=== PATIENT | female | born 1930 | race Caucasian/White ===

== ENCOUNTER 2018-05-07 15:06 | Inpatient (IN) ==
--- NOTE | 2018-05-07 15:19 | Emergency Department Note ---
ED Disposition Clinical Impression: Dementia, RLL pneumonia, Aspiration pneumonia Disposition: Still a Patient Condition on Discharge: Fair Instructions: DI for Acute Abdomen Referrals: Provider,Referral, [Primary Care Provider] - - Critical Care Critical Care Time: No Attestation: On , the high probability of a clinically significant, sudden or life threatening deterioration of the following system(s) required my full and direct attention, intervention and personal management. The time I documented below is in addition to time spent performing reported procedures but includes the following listed in this critical care notation. Medical Decision Making - Arvin Inquiry Pt receiving controlled substance: No Arvin was queried for this patient: No Vital Signs: 05/07/18 15:06 Temperature 99.0 F Temperature Source Oral Pulse Rate [Left Radial] 89 Respiratory Rate 18 Blood Pressure [Right Arm] 122/62 Blood Pressure Mean [Right Arm] 82 Blood Pressure Source [Right Arm] Automatic Cuff Blood Pressure Position [Right Arm] Sitting 02 Sat by Pulse Oximetry 96 Oxygen Delivery Method Room Air - Lab Data Lab Results 05/07/18 15:07: WBC 13.6 H, RBC 3.01 L, Hgb 9.7 L, Hct 28.4 L, MCV 94.3, MCH 32.3 H, MCHC 34.2, RDW 13.5, Plt Count 365, MPV 7.6, Neut % (Auto) 81.6 H, Lymph % (Auto) 11.9, [place] % (Auto) 5.0, Eos % (Auto) 1.2, Baso % (Auto) 0.3, Neut # (Auto) 11.1 H, Lymph # (Auto) 1.6, [place] # (Auto) 0.7, Eos # (Auto) 0.2, Baso # (Auto) 0.0 05/07/18 15:07: Sodium 141, Potassium 4.4, Chloride 108 H, Carbon Dioxide 24, Anion Gap 13.4, BUN 54 H, Creatinine 1.76 H, Estimated Creat Clear 20, Estimated GFR 27 L, Est GFR ( Amer) 33 L, Glucose 113 H, Calcium 9.1, Total Bilirubin 0.4, AST 26, ALT 22, Alkaline Phosphatase 123 H, Total Protein 7.6, Albumin 2.2 L, Globulin 5.4 H, Albumin/Globulin Ratio 0.4 L 05/07/18 15:10: Stool Occult Blood Negative 05/07/18 15:37: Lactate 0.8 Result diagrams: 05/07/18 15:07 05/07/18 15:07 Orders (Tests/Meds): ED MEDICATIONS Generic Name Dose Route Start Last Admin Trade Name Freq PRN Reason Stop Dose Admin Cefepime HCl 1 gm/ Sodium 50 mls @ 100 mls/hr 05/07/18 15:15 05/07/18 16:38 Chloride IV 05/21/18 15:14 100 mls/hr Q12H CONCHITA Administration Protocol Discontinued Medications Generic Name Dose Route Start Last Admin Trade Name Freq PRN Reason Stop Dose Admin Sodium Chloride 1,000 mls @ 999 mls/hr 05/07/18 15:15 05/07/18 16:38 Sod Chlor 0.9% 1000ml Bag IV 05/07/18 16:15 999 mls/hr .Q1H1M CONCHITA Administration ORDERS Category Date Time Status XR chest 2V Stat Exams 05/07/18 15:14 Taken Occult Blood,Stool Stat Lab 05/07/18 15:10 Ordered Blood Culture Stat Micro 05/07/18 15:40 Received - Radiology Data #1 Image(s): Chest Image Reviewed: Yes I reviewed the patient's radiology image Preliminary Findings: Abnormal Right lower lobe infiltrates and questionable early right upper lobe infiltrate. Medical Decision Narrative: Intact Dr. Espinal for admission Dr. Bradley was livestock nutritionist for him. Agreed to admit for IV antibiotics duo nebs suction and pulmonary toilet. Resp/SOB HPI - General Chief Complaint: Abdominal Pain Stated Complaint: Abdomen pain Time Seen by Provider: 05/07/18 15:10 Mode of Arrival: EMS Limitations: No Limitations Description of Symptoms (Recalled from ER Triage Doc. by RN): Was brought in by EMS for lower right pain with black tarry stool and cough. At the long term pt o2 on ra was 75, on 2 l at long term she was 81 with a cough, Duoneb given in ambulance - History of Present Illness 88 years old white female with history of dementia coronary artery disease urinary tract infection COPD". He was sent from the long term due to low oxygen saturation and chest congestion. Applied oxygen with increase of her oxygen saturations [phone] EMS was contacted and patient was brought to the ED. in the ED the patient is alert she denies having chest pain or abdominal. She denies fever or chills. She is in no acute respiratory distress MD Complaint: shortness of breath Severity: mild Consistency/Duration: now resolved Relieving factors: oxygen, bronchodilators Exacerbating factors: nothing Associated symptoms: denies other symptoms Treatment prior to arrival: none - Related Data Home Medications Medication Instructions Recorded Confirmed Acetaminophen 500 mg PO Q6 PRN 10/23/17 05/07/18 Aspirin 81 mg PO DAILY 10/23/17 05/07/18 Carvedilol [Carvedilol 3.125mg Tab] 1.5625 mg PO DAILY 10/23/17 05/07/18 Cholecalciferol (Vitamin D3) 2,000 unit PO DAILY 10/23/17 05/07/18 [Vitamin D3 1,000 Unit Tab] Clopidogrel Bisulfate [Plavix 75mg 75 mg PO DAILY 10/23/17 05/07/18 Tab] Donepezil HCl [Aricept 5mg] 5 mg PO HS 10/23/17 05/07/18 Mirtazapine [Remeron 15mg tablet] 15 mg PO HS 10/23/17 05/07/18 Multivitamin with Minerals 1 each PO DAILY 10/23/17 05/07/18 [Multivitamins with Minerals] Polyethylene Glycol 3350 [Miralax 17 gm PO DAILY 10/23/17 05/07/18 17gm Packet] Simvastatin [Zocor] 10 mg PO HS 10/23/17 05/07/18 guaiFENesin [Robitussin 200mg/10mL 10 ml PO Q6 PRN 10/23/17 05/07/18 Syrup Udc] raNITIdine HCl [Ranitidine HCl] 150 mg PO BID 10/23/17 05/07/18 Sennosides [Senna Laxative] 2 tab PO BIDP PRN 10/24/17 05/07/18 Ipratropium/Albuterol Sulfate 3 ml IH TID 05/07/18 05/07/18 [Duoneb 3mL neb] Allergies Allergy/AdvReac Type Severity Reaction Status Date / Time Penicillins Allergy Unknown Verified 10/23/17 19:22 streptomycin Allergy Unknown Verified 10/23/17 19:22 [facility] History I have reviewed the patient's past medical history: Yes Medical History: Reports:: Atherosclerotic Heart Disease, Chronic Obstructive Pulmonary Disease (COPD), Urinary Tract Infection Denies:: Cancer, Diabetes Mellitus Type 1, Diabetes Mellitus Type 2, Internal Pacemaker, MRSA Other Medical History: Reports: Anemia, Cataracts, Other (pneumonia) Laterality Cases: Bilateral: Tonsillectomy Other Surgeries: Yes: Angioplasty, Cardiac Catheterization. No: Pacemaker Amputation: No Fractures: No - Social History Smoking Status: Former smoker Tobacco Type: cigarettes #Yrs smoked (if former smoker): 50 Alcohol Intake: never Occupational Status: retired Housing: long term Household Members: other Comment: Hobbies: Loves to read - Psychiatric History Expresses thoughts of harming self/others: None Suicide Plan Description: No Plan Family Hx:: Cancer, Diabetes, Hypertension ROS Obtained: Yes All systems reviewed & no additional complaints Physical Exam - General General appearance: alert, in no apparent distress - Head Head exam: atraumatic, normocephalic, normal inspection - Eye Eye exam: Present: normal appearance, PERRL, EOMI. Absent: scleral icterus - ENT ENT exam: Present: normal exam, normal oropharynx, mucous membranes moist, TM's normal bilaterally, normal external ear exam - Neck Neck exam: Present: normal inspection, full ROM, trachea midline. Absent: meningismus, lymphadenopathy - Chest Chest inspection: Present: normal inspection, symmetric chest wall rise. Absent: tenderness - Respiratory Respiratory exam: Present: normal lung sounds bilaterally, wheezes, other (Bibasilar coarse rhonchi.). Absent: respiratory distress - Cardiovascular Cardiovascular exam: Present: regular rate, normal rhythm. Absent: JVD - Abdominal Exam Abdominal exam: Present: soft, normal bowel sounds. Absent: distention, tenderness, guarding, rebound, rigidity - Rectal Exam Rectal exam: Present: normal inspection, normal rectal tone, heme (-) stool. Absent: hemorrhoids, mass, tenderness - External exam: Present: normal external exam - Extremities Exam Extremities exam: Present: normal inspection, full ROM, normal capillary refill. Absent: calf tenderness - Back Exam Back exam: Present: normal inspection. Absent: tenderness, CVA tenderness (R), CVA tenderness (L), paraspinal tenderness, vertebral tenderness - Neurological Exam Neurological exam: Present: alert, CN II-XII intact, motor sensory deficit, reflexes normal, other (She is bedridden with contractures.) - Psychiatric Psychiatric exam: Present: normal affect, normal mood - Skin Skin exam: Present: warm, dry, intact, normal color - Lymphatic Lymphatic Findings: no adenopathy
[2018-05-07 15:23] LABS: Basophils % 0.3 % (0.1-2.0); Eosinophils # 0.2 K/mm3 (0.0-0.4); Eosinophils % 1.2 % (0.1-12.0); Hematocrit 28.4 % (37.0-47.0); Hemoglobin 9.7 g/dL (12.2-16.2); Lymphocytes # 1.6 K/mm3 (0.7-4.5); Lymphocytes % 11.9 K/mm3 (10-50); Mean Corpuscular HGB Conc 34.2 g/dL (31.8-35.4); Mean Corpuscular Hemoglobin 32.3 pg (27.0-31.2); Mean Corpuscular Volume 94.3 fl (81-99); Mean Platelet Volume 7.6 fl (7.4-10.4); Monocytes # 0.7 K/mm3 (0.1-1.0); Neutrophils # 11.1 K/mm3 (1.8-7.8); Neutrophils % 81.6 % (37.0-80.0); Platelet Count 365 K/mm3 (142-424); Red Blood Count 3.01 M/mm3 (4.20-5.40); Red Cell Distribution Width 13.5 % (11.5-17.5); White Blood Count 13.6 K/mm3 (4.8-10.8)
[2018-05-07 15:30] LABS: Albumin Level 2.2 gm/dL (3.4-5.0); Albumin/Globulin Ratio 0.4 (1.1-1.8); Anion Gap 13.4 mEq/L (5-15); Bilirubin,Total 0.4 mg/dL (0.2-1.0); Calcium 9.1 mg/dL (8.5-10.1); Globulin 5.4 gm/dl (1.3-3.2); Potassium 4.4 mmoL/L (3.5-5.1); Total Protein,Serum 7.6 gm/dL (6.4-8.2)
[2018-05-08 07:10] LABS: Basophils % 0.1 % (0.1-2.0); Eosinophils # 0.1 K/mm3 (0.0-0.4); Lymphocytes # 1.3 K/mm3 (0.7-4.5); Lymphocytes % 11.2 K/mm3 (10-50); Mean Corpuscular HGB Conc 34.1 g/dL (31.8-35.4); Mean Corpuscular Hemoglobin 33.2 pg (27.0-31.2); Mean Corpuscular Volume 97.4 fl (81-99); Mean Platelet Volume 7.4 fl (7.4-10.4); Monocytes # 0.4 K/mm3 (0.1-1.0); Monocytes % 3.7 % (1.7-9.3); Neutrophils % 83.9 % (37.0-80.0); Platelet Count 324 K/mm3 (142-424); Red Blood Count 2.62 M/mm3 (4.20-5.40); Red Cell Distribution Width 13.6 % (11.5-17.5); White Blood Count 11.9 K/mm3 (4.8-10.8)
[2018-05-08 07:13] LABS: Hematocrit 25.5 % (37.0-47.0); Hemoglobin 8.7 g/dL (12.2-16.2)
[2018-05-08 07:18] LABS: Anion Gap 16.9 mEq/L (5-15); Calcium 8.3 mg/dL (8.5-10.1); Potassium 3.9 mmoL/L (3.5-5.1)
--- NOTE | 2018-05-08 08:04 | History & Physical Report ---
*Admission Date: 05/07/18 *Chief complaint: Shortness of breath and abdominal pain *History of present illness: This 88-year-old white female was [facility] the [facility]. She was complaining of some shortness of breath and some abdominal pain, this according to the pursue requested transfer for evaluation. Her oxygen saturation was reportedly low in the 7 4-81% range. In the emergency room she was indeed short of breath. She was not complaining of abdominal pain in the emergency room, however. She had a slightly elevated white blood cell count in the emergency room and the emergency room physician judged that she might have a pneumonia based on her evaluation and chest x-ray. She was admitted for antibiotic treatment and further evaluation. History is significant for previous pneumonias for ischemic cardiomyopathy with an ejection fashion of 35%. [facility] History Medical History: Reports:: Atherosclerotic Heart Disease, Chronic Obstructive Pulmonary Disease (COPD), Urinary Tract Infection Denies:: Cancer, Diabetes Mellitus Type 1, Diabetes Mellitus Type 2, Internal Pacemaker, MRSA Other Medical History: Reports: Anemia, Cataracts, Other (pneumonia) Laterality Cases: Bilateral: Tonsillectomy Other Surgeries: Yes: Angioplasty, Cardiac Catheterization (Stenting of the mid left LAD 12/20/2010.). No: Pacemaker Amputation: No Fractures: No - *Social History Educational Level: Completed Grade School (It is noted that she likes to read) Smoking Status: Former smoker Tobacco Type: cigarettes #Yrs smoked (if former smoker): 50 Smoking End Date: Quit September 2009 Alcohol Intake: never Occupational Status: retired Housing: [facility] Household Members: other - Psychiatric History Expresses thoughts of harming self/others: None Suicide Plan Description: No Plan *Family Hx:: Unable to obtain (Record obtained from office notes), Cancer, Diabetes, Hypertension Comment: Her father and mother both had hypertension. Her mother had cancer. A maternal grandmother had brain cancer. A maternal aunt had Beatties. She had a daughter that of cancer apparently breast cancer. She has siblings that have diabetes. It is recorded that she has 2 brothers and 2 sisters. Review of Systems - Review of Systems Review of systems:: other (Difficult to obtain a history. Difficult to obtain review of systems) - *Cardiovascular Denies chest pain - *Respiratory Reports chest congestion, Reports cough - *Gastrointestinal Denies abdominal pain Meds Home Medications Medication Instructions Recorded Confirmed Type Acetaminophen 500 mg PO Q6 PRN 10/23/17 05/07/18 History Aspirin 81 mg PO DAILY 10/23/17 05/07/18 History Carvedilol [Carvedilol 3.125mg Tab] 1.5625 mg PO DAILY 10/23/17 05/07/18 History Cholecalciferol (Vitamin D3) 2,000 unit PO DAILY 10/23/17 05/07/18 History [Vitamin D3 1,000 Unit Tab] Clopidogrel Bisulfate [Plavix 75mg 75 mg PO DAILY 10/23/17 05/07/18 History Tab] Donepezil HCl [Aricept 5mg] 5 mg PO HS 10/23/17 05/07/18 History Mirtazapine [Remeron 15mg tablet] 15 mg PO HS 10/23/17 05/07/18 History Multivitamin with Minerals 1 each PO DAILY 10/23/17 05/07/18 History [Multivitamins with Minerals] Polyethylene Glycol 3350 [Miralax 17 gm PO DAILY 10/23/17 05/07/18 History 17gm Packet] Simvastatin [Zocor] 10 mg PO HS 10/23/17 05/07/18 History guaiFENesin [Robitussin 200mg/10mL 10 ml PO Q6 PRN 10/23/17 05/07/18 History Syrup Udc] raNITIdine HCl [Ranitidine HCl] 150 mg PO BID 10/23/17 05/07/18 History Sennosides [Senna Laxative] 2 tab PO BIDP PRN 10/24/17 05/07/18 History Ipratropium/Albuterol Sulfate 3 ml IH TID 05/07/18 05/07/18 History [Duoneb 3mL neb] Allergies Allergy/AdvReac Type Severity Reaction Status Date / Time Penicillins Allergy Unknown Verified 10/23/17 19:22 streptomycin Allergy Unknown Verified 10/23/17 19:22 Exam Vital signs and Labs for Last 24 Hours: Temp Pulse Resp BP Pulse Ox 97.8 F 88 18 129/68 91 L 05/08/18 04:00 05/08/18 05:53 05/08/18 04:00 05/08/18 04:00 05/08/18 05:53 Laboratory Results - last 24 hr 05/07/18 15:07: WBC 13.6 H, RBC 3.01 L, Hgb 9.7 L, Hct 28.4 L, MCV 94.3, MCH 32.3 H, MCHC 34.2, RDW 13.5, Plt Count 365, MPV 7.6, Neut % (Auto) 81.6 H, Lymph % (Auto) 11.9, [place] % (Auto) 5.0, Eos % (Auto) 1.2, Baso % (Auto) 0.3, Neut # (Auto) 11.1 H, Lymph # (Auto) 1.6, [place] # (Auto) 0.7, Eos # (Auto) 0.2, Baso # (Auto) 0.0 05/07/18 15:07: Sodium 141, Potassium 4.4, Chloride 108 H, Carbon Dioxide 24, An ion Gap 13.4, BUN 54 H, Creatinine 1.76 H, Estimated Creat Clear 20, Estimated GFR 27 L, Est GFR ( Amer) 33 L, Glucose 113 H, Calcium 9.1, Total Bilirubin 0.4, AST 26, ALT 22, Alkaline Phosphatase 123 H, Total Protein 7.6, Albumin 2.2 L, Globulin 5.4 H, Albumin/Globulin Ratio 0.4 L 05/07/18 15:10: Stool Occult Blood Negative 05/07/18 15:37: Lactate 0.8 05/08/18 06:46: WBC 11.9 H, RBC 2.62 L, Hgb 8.7 L D, Hct 25.5 L, MCV 97.4, MCH 33.2 H, MCHC 34.1, RDW 13.6, Plt Count 324, MPV 7.4, Neut % (Auto) 83.9 H, Lymph % (Auto) 11.2, [place] % (Auto) 3.7, Eos % (Auto) 1.0, Baso % (Auto) 0.1, Neut # (Auto) 10.0 H, Lymph # (Auto) 1.3, [place] # (Auto) 0.4, Eos # (Auto) 0.1, Baso # (Auto) 0.0 05/08/18 06:46: Sodium 145, Potassium 3.9, Chloride 112 H, Carbon Dioxide 20 L, Anion Gap 16.9 H, BUN 50 H, Creatinine 1.61 H, Estimated Creat Clear 17, Estimated GFR 30 L, Est GFR ( Amer) 37 L, Glucose 101, Calcium 8.3 L, Magnesium 1.6 Laboratory Tests 05/07/18 05/07/18 05/08/18 15:07 15:07 06:46 WBC 13.6 H 11.9 H Hgb 9.7 L 8.7 L D Sodium 141 Potassium 4.4 BUN 54 H Creatinine 1.76 H 05/08/18 06:46 WBC Hgb Sodium 145 Potassium 3.9 BUN 50 H Creatinine 1.61 H I & O for Last 24 hours: Intake & Output 05/05/18 05/06/18 05/07/18 05/08/18 11:59 11:59 11:59 11:59 Intake Total 100 / 100 Balance 100 / 100 Weight 97 lb 9 oz - Constitutional no acute distress Comments: She is lying in bed in no acute distress but she is somewhat tachypneic. She repeatedly asks if she is going home today. - *Routine HEENT Exam Head: Present: normocephalic Eye: Present: EOMI, PERRL. Absent: scleral injection ENT: Present: mucous membranes moist - *Routine Neck Exam Present: supple. Absent: JVD - Routine Chest/Breast/Axilla Exam Chest wall: Absent: tenderness, mass Breast: Absent: tenderness - *Routine Respiratory Exam Comments: She is somewhat tachypneic and has a rattling deep cough. She is moving air very well and has a few bibasilar rales. Chest x-ray is reviewed. - *Routine Cardiovascular Exam Present: RRR Comments: Seems to be in sinus rhythm at 104. - *Routine Abdominal Exam Present: soft. Absent: tenderness, distended, rigid, organomegaly, mass - *Routine Rectal Exam Comments: Not done - *Routine Extremities Exam Absent: edema Comments: She has large pads on her feet but I checked no heel ulcers. There is an abrasion or excoriation on the right foot dorsum at the first MP joint. There is onychogryphosis - *Routine Neurological Exam Present: alert, oriented X3 She is awake but orientation is questionable. She repeatedly asks am I going home today. H&P: Result - Imaging and Cardiology Chest x-ray Status: image reviewed by me (The report does not call a pneumonia. Questions blunting at the angles. Questions effusion.) Assessment and Plan (1) Bronchitis Current visit: Yes Status: Acute Category: Medical Code(s): J40 - Bronchitis, not specified as acute or chronic (2) Ischemic cardiomyopathy Current visit: Yes Status: Acute Category: Medical Code(s): I25.5 - Ischemic cardiomyopathy (3) Elevated white blood cell count Current visit: Yes Status: Acute Category: Medical Code(s): D72.829 - Elevated white blood cell count, unspecified (4) Hx of arteriosclerotic cardiovascular disease Current visit: No Status: Acute Category: Medical Code(s): Z86.79 - Personal history of other diseases of the circulatory system (5) Hypertension Current visit: No Status: Acute Category: Medical Code(s): I10 - Essential (primary) hypertension (6) Hypoxemia Current visit: No Status: Acute Category: Medical Code(s): R09.02 - Hypoxemia (7) Debility Current visit: No Status: Chronic Category: Medical Code(s): R53.81 - Other malaise - Assessment and plan all Dx Assessment and Plan for all problems:: See orders. IV antibiotics have been initiated. She seems clinically stable.
--- NOTE | 2018-05-08 08:39 | Pharmacy Consult Notes ---
[facility] Pharmacy VTE Monitoring - Patient Demographics Admission date: 05/07/18 Report Date: 05/08/18 Time: 08:38 Allergies/Adverse Reactions: Patient Allergies Penicillins Allergy (Unknown, Verified 10/23/17 19:22) streptomycin Allergy (Unknown, Verified 10/23/17 19:22) Height: 1.65 m Weight: 44.254 kg Patient Problems: Current Active Problems Dementia (Acute) RLL pneumonia (Acute) Aspiration pneumonia (Acute) Bronchitis (Acute) Ischemic cardiomyopathy (Acute) Elevated white blood cell count (Acute) - VTE Risk Labs: VTE Related Lab Results Hgb 8.7 g/dL (12.2-16.2) L D 05/08/18 06:46 Hct 25.5 % (37.0-47.0) L 05/08/18 06:46 Plt Count 324 K/mm3 (142-424) 05/08/18 06:46 BUN 50 mg/dL (7-18) H 05/08/18 06:46 Creatinine 1.61 mg/dL (0.55-1.02) H 05/08/18 06:46 Estimated Creat Clear 17 mL/min (0-300) 05/08/18 06:46 VTE Score: 2 VTE Risk Level: Very Low Risk - Prophylaxis VTE Prophylaxis Ordered?: Yes Types of VTE Prophylaxis: TEDS Knee High Location of Applied Device: Bilateral Lower Extremeties - VTE Diagnosis Confirmed Treatment or plan recommended: Continue Current Treatment
--- NOTE | 2018-05-09 08:46 | Progress Note ---
Addendum entered and electronically signed by Winifred Mcdonnell APRN 05/09/18 08:50: Pelvis, hips, and lower back x-rays ordered. Also CBC and BMP and cath urine ordered. Comfort measures. Continue with treatment for pneumonia. Original Note: Internal Medicine - PN: Subj *Date: 05/19/18 *Time: 07:45 Interval history: Patient states her hips hurt when she coughs. She denies chest pain and shortness of breath. She continues with a congested nonproductive cough. She states she is eating and likes milk. Nursing states that she started complaining of her hips and her back hurting yesterday. Tylenol, tramadol, Lorcet did not help last night. Exam Vital signs and Labs for Last 24 Hours: Temp Pulse Resp BP Pulse Ox 99.8 F H 103 H 24 118/74 90 L 05/09/18 08:00 05/09/18 08:00 05/09/18 08:00 05/09/18 08:00 05/09/18 08:00 I & O for Last 24 hours: Intake & Output 05/06/18 05/07/18 05/08/18 05/09/18 11:59 11:59 11:59 11:59 Intake Total 260 / 260 1561 / 1561 Balance 260 / 260 1561 / 1561 Weight 97 lb 9 oz - Constitutional no acute distress Comments: Awakened for exam. Heels with movement from side to side. - *Routine Respiratory Exam Comments: Bilateral rhonchi. Congested cough. - *Routine Cardiovascular Exam Present: RRR - *Routine Abdominal Exam Present: soft, normoactive bowel sounds. Absent: tenderness - *Routine Rectal Exam Comments: No noted hemorrhoids - *Routine Extremities Exam Absent: edema Comments: Bilateral foot drop - *Routine Skin Exam Present: intact - *Routine Neurological Exam Seems alert. Answers all questions appropriately. Assessment and Plan (1) Bronchitis Current visit: Yes Status: Acute Category: Medical Code(s): J40 - Bronchitis, not specified as acute or chronic (2) Ischemic cardiomyopathy Current visit: Yes Status: Acute Category: Medical Code(s): I25.5 - Ischemic cardiomyopathy (3) Elevated white blood cell count Current visit: Yes Status: Acute Category: Medical Code(s): D72.829 - Elevated white blood cell count, unspecified (4) Hx of arteriosclerotic cardiovascular disease Current visit: No Status: Acute Category: Medical Code(s): Z86.79 - Personal history of other diseases of the circulatory system (5) Hypertension Current visit: No Status: Acute Category: Medical Code(s): I10 - Essential (primary) hypertension (6) Hypoxemia Current visit: No Status: Acute Category: Medical Code(s): R09.02 - Hypoxemia (7) Debility Current visit: No Status: Chronic Category: Medical Code(s): R53.81 - Other malaise (8) Back pain Current visit: Yes Status: Acute Category: Medical Code(s): M54.9 - Dorsalgia, unspecified (9) Pelvic pain Current visit: Yes Status: Acute Category: Medical Code(s): R10.2 - Pelvic and perineal pain
[2018-05-09 08:51] LABS: Basophils % 0.1 % (0.1-2.0); Eosinophils # 0.3 K/mm3 (0.0-0.4); Eosinophils % 2.3 % (0.1-12.0); Hematocrit 27.6 % (37.0-47.0); Hemoglobin 8.2 g/dL (12.2-16.2); Lymphocytes % 8.3 K/mm3 (10-50); Mean Corpuscular HGB Conc 29.8 g/dL (31.8-35.4); Mean Corpuscular Volume 97.3 fl (81-99); Mean Platelet Volume 8.1 fl (7.4-10.4); Monocytes # 0.3 K/mm3 (0.1-1.0); Monocytes % 2.9 % (1.7-9.3); Neutrophils # 9.9 K/mm3 (1.8-7.8); Neutrophils % 86.4 % (37.0-80.0); Platelet Count 310 K/mm3 (142-424); Red Blood Count 2.84 M/mm3 (4.20-5.40); Red Cell Distribution Width 13.7 % (11.5-17.5); White Blood Count 11.5 K/mm3 (4.8-10.8)
[2018-05-09 08:54] LABS: Anion Gap 14.9 mEq/L (5-15); Calcium 8.7 mg/dL (8.5-10.1); Potassium 3.9 mmoL/L (3.5-5.1)
[2018-05-09 09:33] LABS: Basophils % 0.2 % (0.1-2.0); Eosinophils # 0.3 K/mm3 (0.0-0.4); Eosinophils % 1.9 % (0.1-12.0); Hematocrit 28.1 % (37.0-47.0); Hemoglobin 8.7 g/dL (12.2-16.2); Lymphocytes % 6.9 K/mm3 (10-50); Mean Corpuscular HGB Conc 30.9 g/dL (31.8-35.4); Mean Corpuscular Volume 97.2 fl (81-99); Mean Platelet Volume 8.3 fl (7.4-10.4); Monocytes # 0.4 K/mm3 (0.1-1.0); Monocytes % 2.5 % (1.7-9.3); Neutrophils # 12.3 K/mm3 (1.8-7.8); Neutrophils % 88.5 % (37.0-80.0); Platelet Count 335 K/mm3 (142-424); Red Blood Count 2.89 M/mm3 (4.20-5.40); Red Cell Distribution Width 13.7 % (11.5-17.5); White Blood Count 13.9 K/mm3 (4.8-10.8)
[2018-05-09 10:44] LABS: Eosinophils % 1 % (0-3); Lymphocytes % 7 % (10-50); Monocytes % 3 % (2-9); Neutrophils % 89 % (42-76); Total Cells Counted 100
--- NOTE | 2018-05-09 14:37 | Pharmacy Consult Notes ---
- Pharmacy Consult Date: 05/09/18 Time: 14:35 Referring provider: DR. PAUL Reason for Consult:: VANCOMYCIN DOSING Allergies and ADEs:: Allergies Allergy/AdvReac Type Severity Reaction Status Date / Time Penicillins Allergy Unknown Verified 10/23/17 19:22 streptomycin Allergy Unknown Verified 10/23/17 19:22 Home Medications:: Home Medications Medication Instructions Recorded Confirmed Type Acetaminophen 500 mg PO Q6HP PRN 10/23/17 05/08/18 History Aspirin 81 mg PO DAILY 10/23/17 05/07/18 History Carvedilol [Carvedilol 3.125mg Tab] 1.5625 mg PO DAILY 10/23/17 05/07/18 History Cholecalciferol (Vitamin D3) 2,000 unit PO DAILY 10/23/17 05/07/18 History [Vitamin D3 1,000 Unit Tab] Clopidogrel Bisulfate [Plavix 75mg 75 mg PO DAILY 10/23/17 05/07/18 History Tab] Donepezil HCl [Aricept 5mg] 5 mg PO HS 10/23/17 05/07/18 History Mirtazapine [Remeron 15mg tablet] 15 mg PO HS 10/23/17 05/07/18 History Multivitamin with Minerals 1 each PO DAILY 10/23/17 05/07/18 History [Multivitamins with Minerals] Polyethylene Glycol 3350 [Miralax 17 gm PO DAILY 10/23/17 05/07/18 History 17gm Packet] Simvastatin [Zocor] 10 mg PO HS 10/23/17 05/07/18 History guaiFENesin [Robitussin 200mg/10mL 10 ml PO Q6HP PRN 10/23/17 05/08/18 History Syrup Udc] raNITIdine HCl [Ranitidine HCl] 150 mg PO BID 10/23/17 05/07/18 History Sennosides [Senna Laxative] 17.2 mg PO BIDP PRN 10/24/17 05/08/18 History Ipratropium/Albuterol Sulfate 3 ml IH TID 05/07/18 05/07/18 History [Duoneb 3mL neb] Height: 1.65 m Weight: 44.254 kg Laboratory Results:: Laboratory Results - last 24 hr 05/09/18 08:22: WBC 11.5 H, RBC 2.84 L, Hgb 8.2 L, Hct 27.6 L, MCV 97.3, MCH 29.0, MCHC 29.8 L, RDW 13.7, Plt Count 310, MPV 8.1, Neut % (Auto) 86.4 H, Lymph % (Auto) 8.3 L, [place] % (Auto) 2.9, Eos % (Auto) 2.3, Baso % (Auto) 0.1, Neut # (Auto) 9.9 H, Lymph # (Auto) 1.0, [place] # (Auto) 0.3, Eos # (Auto) 0.3, Baso # (Auto) 0.0, Total Counted 100, Neutrophils % (Manual) 89 H, Lymphocytes % (Manual) 7 L, Monocytes % (Manual) 3, Eosinophils % (Manual) 1, Platelet E stimate Normal 05/09/18 08:22: Sodium 145, Potassium 3.9, Chloride 112 H, Carbon Dioxide 22, Anion Gap 14.9, BUN 49 H, Creatinine 1.63 H, Estimated Creat Clear 17, Estimated GFR 30 L, Est GFR ( Amer) 36 L, Glucose 108 H, Calcium 8.7 05/09/18 08:55: Urine Color Yellow, Urine Appearance Turbid, Urine pH 6.5, Ur Specific [place] 1.020, Urine Protein 2+, Urine Glucose (UA) Negative, Urine Ketones Negative, Urine Blood 2+, Urine Nitrate Negative, Urine Bilirubin Negative, Urine Urobilinogen 0.2, Ur Leukocyte Esterase 3+ A, Urine RBC 5-10, Urine WBC Tntc A, Urine Bacteria 4+ A 05/09/18 09:15: WBC 13.9 H, RBC 2.89 L, Hgb 8.7 L, Hct 28.1 L, MCV 97.2, MCH 30.0, MCHC 30.9 L, RDW 13.7, Plt Count 335, MPV 8.3, Neut % (Auto) 88.5 H, Lymph % (Auto) 6.9 L, [place] % (Auto) 2.5, Eos % (Auto) 1.9, Baso % (Auto) 0.2, Neut # (Auto) 12.3 H, Lymph # (Auto) 1.0, [place] # (Auto) 0.4, Eos # (Auto) 0.3, Baso # (Auto) 0.0 Medical History: Reports:: Atherosclerotic Heart Disease, Chronic Obstructive Pulmonary Disease (COPD), Urinary Tract Infection Denies:: Cancer, Diabetes Mellitus Type 1, Diabetes Mellitus Type 2, Internal Pacemaker, MRSA Assessment and Plan (1) Bronchitis Current visit: Yes Status: Acute Category: Medical Code(s): J40 - Bronchitis, not specified as acute or chronic (2) Ischemic cardiomyopathy Current visit: Yes Status: Acute Category: Medical Code(s): I25.5 - Ischemic cardiomyopathy (3) Elevated white blood cell count Current visit: Yes Status: Acute Category: Medical Code(s): D72.829 - Elevated white blood cell count, unspecified (4) Hx of arteriosclerotic cardiovascular disease Current visit: No Status: Acute Category: Medical Code(s): Z86.79 - Personal history of other diseases of the circulatory system (5) Hypertension Current visit: No Status: Acute Category: Medical Code(s): I10 - Essential (primary) hypertension (6) Hypoxemia Current visit: No Status: Acute Category: Medical Code(s): R09.02 - Hypoxemia (7) Debility Current visit: No Status: Chronic Category: Medical Code(s): R53.81 - Other malaise (8) Back pain Current visit: Yes Status: Acute Category: Medical Code(s): M54.9 - Dorsalgia, unspecified (9) Pelvic pain Current visit: Yes Status: Acute Category: Medical Code(s): R10.2 - Pelvic and perineal pain - Assessment and plan all Dx Assessment and Plan for all problems:: BASED ON PATIENT FACTORS, RECOMMEND VANCOMYCIN 500MG IV Q48H. PHARMACY WILL OBTAIN TROUGH LEVEL PRIOR TO SECOND DOSE AND WILL ADJUST DOSE APPROPRIATE AT THAT POINT. -KATHE HIDALGO, ALDOD
[2018-05-10 07:11] LABS: Basophils % 0.2 % (0.1-2.0); Hematocrit 27.5 % (37.0-47.0); Hemoglobin 8.1 g/dL (12.2-16.2); Lymphocytes # 0.6 K/mm3 (0.7-4.5); Lymphocytes % 7.9 K/mm3 (10-50); Mean Corpuscular HGB Conc 29.6 g/dL (31.8-35.4); Mean Corpuscular Hemoglobin 29.9 pg (27.0-31.2); Mean Corpuscular Volume 101.1 fl (81-99); Mean Platelet Volume 7.8 fl (7.4-10.4); Monocytes # 0.1 K/mm3 (0.1-1.0); Monocytes % 1.4 % (1.7-9.3); Neutrophils # 6.6 K/mm3 (1.8-7.8); Neutrophils % 90.4 % (37.0-80.0); Platelet Count 299 K/mm3 (142-424); Red Blood Count 2.72 M/mm3 (4.20-5.40); Red Cell Distribution Width 13.9 % (11.5-17.5); White Blood Count 7.3 K/mm3 (4.8-10.8)
[2018-05-10 08:05] LABS: Anion Gap 18.4 mEq/L (5-15); Calcium 7.9 mg/dL (8.5-10.1); Potassium 4.4 mmoL/L (3.5-5.1)
--- NOTE | 2018-05-10 08:26 | Progress Note ---
Internal Medicine - PN: Subj *Date: 05/10/18 *Time: 07:40 Interval history: Patient comments that she would like her Nevarez catheter removed. She states it hurts. She denies back pain but states her hips hurt. Creatinine has improved. White blood cell count is normal today. Urine and sputum cultures are pending Nurse reports that she eats very little. Exam Vital signs and Labs for Last 24 Hours: Temp Pulse Resp BP Pulse Ox 98.3 F 107 H 20 127/57 L 94 L 05/10/18 07:43 05/10/18 07:43 05/10/18 04:00 05/10/18 07:43 05/10/18 07:43 Laboratory Results - last 24 hr 05/09/18 08:22: WBC 11.5 H, RBC 2.84 L, Hgb 8.2 L, Hct 27.6 L, MCV 97.3, MCH 29.0, MCHC 29.8 L, RDW 13.7, Plt Count 310, MPV 8.1, Neut % (Auto) 86.4 H, Lymph % (Auto) 8.3 L, [place] % (Auto) 2.9, Eos % (Auto) 2.3, Baso % (Auto) 0.1, Neut # (Auto) 9.9 H, Lymph # (Auto) 1.0, [place] # (Auto) 0.3, Eos # (Auto) 0.3, Baso # (Auto) 0.0, Total Counted 100, Neutrophils % (Manual) 89 H, Lymphocytes % (Manual) 7 L, Monocytes % (Manual) 3, Eosinophils % (Manual) 1, Platelet Estimate Normal 05/09/18 08:22: Sodium 145, Potassium 3.9, Chloride 112 H, Carbon Dioxide 22, Anion Gap 14.9, BUN 49 H, Creatinine 1.63 H, Estimated Creat Clear 17, Estimated GFR 30 L, Est GFR ( Amer) 36 L, Glucose 108 H, Calcium 8.7 05/09/18 08:55: Urine Color Yellow, Urine Appearance Turbid, Urine pH 6.5, Ur Specific [place] 1.020, Urine Protein 2+, Urine Glucose (UA) Negative, Urine Ketones Negative, Urine Blood 2+, Urine Nitrate Negative, Urine Bilirubin Negative, Urine Urobilinogen 0.2, Ur Leukocyte Esterase 3+ A, Urine RBC 5-10, Urine WBC Tntc A, Urine Bacteria 4+ A 05/09/18 09:15: WBC 13.9 H, RBC 2.89 L, Hgb 8.7 L, Hct 28.1 L, MCV 97.2, MCH 30.0, MCHC 30.9 L, RDW 13.7, Plt Count 335, MPV 8.3, Neut % (Auto) 88.5 H, Lymph % (Auto) 6.9 L, [place] % (Auto) 2.5, Eos % (Auto) 1.9, Baso % (Auto) 0.2, Neut # (Auto) 12.3 H, Lymph # (Auto) 1.0, [place] # (Auto) 0.4, Eos # (Auto) 0.3, Baso # (Auto) 0.0 05/10/18 06:35: WBC 7.3 D, RBC 2.72 L, Hgb 8.1 L, Hct 27.5 L, MCV 101.1 H, MCH 29.9, MCHC 29.6 L, RDW 13.9, Plt Count 299, MPV 7.8, Neut % (Auto) 90.4 H, Lymph % (Auto) 7.9 L, [place] % (Auto) 1.4 L, Eos % (Auto) 0.0 L, Baso % (Auto) 0.2, Neut # (Auto) 6.6, Lymph # (Auto) 0.6 L, [place] # (Auto) 0.1, Eos # (Auto) 0.0, Baso # (Auto) 0.0 05/10/18 06:35: Sodium 140, Potassium 4.4, Chloride 108 H, Carbon Dioxide 18 L, Anion Gap 18.4 H, BUN 44 H, Creatinine 1.34 H, Estimated Creat Clear 21, Estimated GFR 37 L, Est GFR ( Amer) 45 L D, Glucose 137 H D, Calcium 7.9 L I & O for Last 24 hours: Intake & Output 05/07/18 05/08/18 05/09/18 05/10/18 11:59 11:59 11:59 11:59 Intake Total 260 / 260 1661 / 1661 3334 / 3334 Output Total 825 / 825 Balance 260 / 260 1661 / 1661 2509 / 2509 Weight 97 lb 9 oz 101 lb 6 oz Microbiology Reports for the Last 24 Hours: Microbiology 05/09/18 12:42 Sputum - Expectorated Sputum Gram Stain - Final 05/09/18 12:42 Sputum - Expectorated Sputum Sputum Culture - Final 05/07/18 15:40 Blood Blood Culture - Preliminary NO GROWTH AFTER 48 HOURS 05/07/18 15:37 Blood Blood Culture - Preliminary NO GROWTH AFTER 48 HOURS Radiology Reports for the Last 24 Hours: X-ray of left hip 05/09/2018 IMPRESSION: Mild osteoarthritis of the left hip X-ray of right hip 05/09/2018 IMPRESSION: Mild osteoarthritis of the right X-ray of lumbar sacral spine 05/09/2018 IMPRESSION: 1. No acute finding lumbar spine. 2. Bilateral renal calculi with staghorn calculus on the right Chest x-ray 05/09/2018 IMPRESSION: Chronic changes with right lower lobe pneumonia - Constitutional no acute distress, thin Comments: Lying in bed with head of bed elevated. Appears more alert. Verbalizes clearly that she would like her Nevarez catheter removed - *Routine Respiratory Exam Comments: Bilateral coarse rhonchi with expiratory wheezing basis. Very congested loose cough - *Routine Cardiovascular Exam Present: RRR - *Routine Abdominal Exam Present: soft, normoactive bowel sounds. Absent: tenderness - *Routine Extremities Exam Absent: edema - *Routine Skin Exam Present: pallor - *Routine Neurological Exam Present: alert (More alert today) Assessment and Plan (1) Bronchitis Current visit: Yes Status: Acute Category: Medical Code(s): J40 - Bronchitis, not specified as acute or chronic (2) Ischemic cardiomyopathy Current visit: Yes Status: Acute Category: Medical Code(s): I25.5 - Ischemic cardiomyopathy (3) Elevated white blood cell count Current visit: Yes Status: Acute Category: Medical Code(s): D72.829 - Elevated white blood cell count, unspecified (4) Hx of arteriosclerotic cardiovascular disease Current visit: No Status: Acute Category: Medical Code(s): Z86.79 - Personal history of other diseases of the circulatory system (5) Hypertension Current visit: No Status: Acute Category: Medical Code(s): I10 - Essential (primary) hypertension (6) Hypoxemia Current visit: No Status: Acute Category: Medical Code(s): R09.02 - Hypoxemia (7) Debility Current visit: No Status: Chronic Category: Medical Code(s): R53.81 - Other malaise (8) Back pain Current visit: Yes Status: Acute Category: Medical Code(s): M54.9 - Dorsalgia, unspecified (9) Pelvic pain Current visit: Yes Status: Acute Category: Medical Code(s): R10.2 - Pelvic and perineal pain (10) Right lower lobe pneumonia Current visit: Yes Status: Acute Category: Medical Code(s): J18.1 - Lobar pneumonia, unspecified organism (11) Anemia Current visit: Yes Status: Acute Category: Medical Code(s): D64.9 - Anemia, unspecified - Assessment and plan all Dx Assessment and Plan for all problems:: Patient is on vancomycin, cefepime, and Levaquin. She continues with duo nebs and has been started on steroids. Will decrease dosage of steroids today. Urine appears clear today. Will discontinue Nevarez catheter. She is on scheduled pain medication.
[2018-05-10 11:03] LABS: Lymphocytes % 7 % (10-50); Neutrophils % 92 % (42-76); Total Cells Counted 100
[2018-05-10 11:06] LABS: Macrocytosis 1+
[2018-05-10 11:07] LABS: Hypochromasia 1+
--- NOTE | 2018-05-11 08:34 | Progress Note ---
Internal Medicine - PN: Subj *Date: 05/11/18 *Time: 08:00 Interval history: Patient is wondering when she will be going back to [facility]. She states her left knee and leg hurt with movement or when she sits up in the bed. She is eating as usual which is very little. Her bowels have not moved. She is voiding and is incontinent of urine. Continues to cough. Denies shortness of breath and chest pain. She just does not want to be moved because she is afraid her left leg will start to hurt again. She did sleep some. He request that she continue with the pain medicine which she has now for the pain in her leg and her back and hips Exam Vital signs and Labs for Last 24 Hours: Temp Pulse Resp BP Pulse Ox 97.7 F 111 H 20 115/66 93 L 05/11/18 07:31 05/11/18 07:31 05/11/18 07:31 05/11/18 07:31 05/11/18 07:31 Laboratory Results - last 24 hr 05/10/18 06:35: Total Counted 100, Neutrophils % (Manual) 92 H, Band Neutrophils % 1.0, Lymphocytes % (Manual) 7 L, Platelet Estimate Normal, Hypochromasia 1+, Macrocytosis 1+ I & O for Last 24 hours: Intake & Output 05/08/18 05/09/18 05/10/18 05/11/18 11:59 11:59 11:59 11:59 Intake Total 260 / 260 1661 / 1661 3334 / 3334 1949 Output Total 825 / 825 Balance 260 / 260 1661 / 1661 2509 / 2509 1949 Weight 97 lb 9 oz 101 lb 6 oz Microbiology Reports for the Last 24 Hours: Microbiology 05/09/18 12:42 Sputum - Expectorated Sputum Gram Stain - Final 05/09/18 12:42 Sputum - Expectorated Sputum Sputum Culture - Preliminary 05/09/18 08:55 Urine,Catheterized Urine Culture - Preliminary - Constitutional no acute distress Comments: She is much more alert today. She is talkative. Speech is clear. - *Routine Respiratory Exam Comments: Bilateral rhonchi. Congested cough - *Routine Cardiovascular Exam Present: RRR - *Routine Abdominal Exam Present: soft, normoactive bowel sounds. Absent: tenderness - *Routine Extremities Exam Absent: edema Comments: Right great toe with bruising. Skin is intact. Heel protectors and bilateral teds on - *Routine Neurological Exam Present: alert, oriented X3 Ask about where Dr. Espinal is. Assessment and Plan (1) Bronchitis Current visit: Yes Status: Acute Category: Medical Code(s): J40 - Bronchitis, not specified as acute or chronic (2) Ischemic cardiomyopathy Current visit: Yes Status: Acute Category: Medical Code(s): I25.5 - Ischemic cardiomyopathy (3) Elevated white blood cell count Current visit: Yes Status: Acute Category: Medical Code(s): D72.829 - Elevated white blood cell count, unspecified (4) Hx of arteriosclerotic cardiovascular disease Current visit: No Status: Acute Category: Medical Code(s): Z86.79 - Personal history of other diseases of the circulatory system (5) Hypertension Current visit: No Status: Acute Category: Medical Code(s): I10 - Essential (primary) hypertension (6) Hypoxemia Current visit: No Status: Acute Category: Medical Code(s): R09.02 - Hypoxemia (7) Debility Current visit: No Status: Chronic Category: Medical Code(s): R53.81 - Other malaise (8) Back pain Current visit: Yes Status: Acute Category: Medical Code(s): M54.9 - Dorsalgia, unspecified (9) Pelvic pain Current visit: Yes Status: Acute Category: Medical Code(s): R10.2 - Pelvic and perineal pain (10) Right lower lobe pneumonia Current visit: Yes Status: Acute Category: Medical Code(s): J18.1 - Lobar pneumonia, unspecified organism (11) Anemia Current visit: Yes Status: Acute Category: Medical Code(s): D64.9 - Anemia, unspecified - Assessment and plan all Dx Assessment and Plan for all problems:: Cultures are still pending. Possibly back to [facility] today with antibiotics and duo nebs. Will discontinue steroids.
--- NOTE | 2018-05-11 09:20 | Discharge Summary ---
General - General Admission date:: 05/07/18 Discharge date: 05/10/18 HPI HPI: This 88-year-old white female [facility] She was complaining of some shortness of breath and abdominal pain and the nurse requested transfer for evaluation. Her oxygen saturation was reportedly low at 74-81% range. In the emergency room she was noted to be short of breath. She was not complaining of abdominal pain in the emergency room. However she had a slightly elevated white blood cell count and the emergency room physician judged that she might have a pneumonia based on her evaluation and chest x-ray. She was admitted for antibiotic treatment and further evaluation. History was significant for previous pneumonias and for ischemic cardiomyopathy with an ejection fashion of 35%. Hospital Course Hospital Course: On admission the patient was placed on triple antibiotic therapy and duo nebs. Initially she was felt to be doing well but then on 05/09/2018 she was noted to have a low-grade fever and an increase in her white blood cells. Her mental status had improved. She was complaining of leg hip and back pain and yelled continuously. At this time urinalysis was obtained and Nevarez catheter was anchored. She had x-rays of her lumbar sacral area, hips, and pelvis. These were all negative for fractures and acute process. She was noted to have arthritic changes. Repeat chest x-ray did show a right lower lobe pneumonia. At this time she was started on scheduled pain medication, steroids, and IV vancomycin was added with discontinuation of the Flagyl. IV fluids were in creased to 100 mL/h. She remained on the cefepime and Levaquin. Urinalysis did show a urinary tract infection. Nevarez catheter was removed the following day at the patient's request. She became much more alert and did appear to be more comfortable. O2 sats remained stable on oxygen Patient was noted to be bedfast in the [facility]. Her time was spent reading in the bed. She had a poor appetite and was a very picky eater. She ate as usual after admission to [facility]. She was incontinent of urine and stool. She had a closed wound on her right great toe which seemed to be improved. On 05/11/2018 patient had definitely improved. She was more alert and talkative. She was anxious to return back to [facility]. At this time urine, sputum and blood cultures were all pending final results. She was felt stable to be transferred back to [facility] with duo nebs and antibiotics. Follow-up would be at [facility]. Objective Vital signs: Temp Pulse Resp BP Pulse Ox 97.7 F 111 H 20 115/66 93 L 05/11/18 07:31 18 07:31 10 07:31 05/11/18 07:31 05/11/18 07:31 Narrative: - Constitutional no acute distress Comments: She is much more alert today. She is talkative. Speech is clear. - *Routine Respiratory Exam Comments: Bilateral rhonchi. Congested cough - *Routine Cardiovascular Exam Present: RRR - *Routine Abdominal Exam Present: soft, normoactive bowel sounds. Absent: tenderness - *Routine Extremities Exam Absent: edema Comments: Right great toe with bruising. Skin is intact. Heel protectors and bilateral teds on - *Routine Neurological Exam Present: alert, oriented X3 Ask about where Dr. Espinal is. Results Completed studies during hospitalization [Text1]: Laboratory Tests 05/07/18 05/07/18 05/07/18 15:07 15:07 15:10 WBC 13.6 H RBC 3.01 L Hgb 9.7 L Hct 28.4 L MCV 94.3 MCH 32.3 H MCHC 34.2 RDW 13.5 Plt Count 365 MPV 7.6 Neut % (Auto) 81.6 H Lymph % (Auto) 11.9 [place] % (Auto) 5.0 Eos % (Auto) 1.2 Baso % (Auto) 0.3 Neut # (Auto) 11.1 H Lymph # (Auto) 1.6 [place] # (Auto) 0.7 Eos # (Auto) 0.2 Baso # (Auto) 0.0 Sodium 141 Potassium 4.4 Chloride 108 H Carbon Dioxide 24 Anion Gap 13.4 BUN 54 H Creatinine 1.76 H Estimated Creat Clear 20 Estimated GFR 27 L Est GFR ( Amer) 33 L Glucose 113 H Lactate Calcium 9.1 Magnesium Total Bilirubin 0.4 AST 26 ALT 22 Alkaline Phosphatase 123 H Total Protein 7.6 Albumin 2.2 L Globulin 5.4 H Albumin/Globulin Ratio 0.4 L Urine Color Urine Appearance Urine pH Ur Specific [place] Urine Protein Urine Glucose (UA) Urine Ketones Urine Blood Urine Nitrate Urine Bilirubin Urine Urobilinogen Ur Leukocyte Esterase Urine RBC Urine WBC Urine Bacteria Stool Occult Blood Negative 05/07/18 05/08/18 05/09/18 15:37 06:46 08:55 WBC RBC Hgb Hct MCV MCH MCHC RDW Plt Count MPV Neut % (Auto) Lymph % (Auto) [place] % (Auto) Eos % (Auto) Baso % (Auto) Neut # (Auto) Lymph # (Auto) [place] # (Auto) Eos # (Auto) Baso # (Auto) Sodium Potassium Chloride Carbon Dioxide Anion Gap BUN Creatinine Estimated Creat Clear Estimated GFR Est GFR ( Amer) Glucose Lactate 0.8 Calcium Magnesium 1.6 Total Bilirubin AST ALT Alkaline Phosphatase Total Protein Albumin Globulin Albumin/Globulin Ratio Urine Color Yellow Urine Appearance Turbid Urine pH 6.5 Ur Specific [place] 1.020 Urine Protein 2+ Urine Glucose (UA) Negative Urine Ketones Negative Urine Blood 2+ Urine Nitrate Negative Urine Bilirubin Negative Urine Urobilinogen 0.2 Ur Leukocyte Esterase 3+ A Urine RBC 5-10 Urine WBC Tntc A Urine Bacteria 4+ A Stool Occult Blood 05/10/18 05/10/18 06:35 06:35 WBC 7.3 D RBC 2.72 L Hgb 8.1 L Hct 27.5 L MCV 101.1 H MCH 29.9 MCHC 29.6 L RDW 13.9 Plt Count 299 MPV Neut % (Auto) 90.4 H Lymph % (Auto) 7.9 L [place] % (Auto) 1.4 L Eos % (Auto) 0.0 L Baso % (Auto) Neut # (Auto) Lymph # (Auto) [place] # (Auto) Eos # (Auto) Baso # (Auto) Sodium 140 Potassium 4.4 Chloride 108 H Carbon Dioxide 18 L Anion Gap 18.4 H BUN 44 H Creatinine 1.34 H Estimated Creat Clear 21 Estimated GFR 37 L Est GFR ( Amer) 45 L D Glucose 137 H D Lactate Calcium Magnesium Total Bilirubin AST ALT Alkaline Phosphatase Total Protein Albumin Globulin Albumin/Globulin Ratio Urine Color Urine Appearance Urine pH Ur Specific [place] Urine Protein Urine Glucose (UA) Urine Ketones Urine Blood Urine Nitrate Urine Bilirubin Urine Urobilinogen Ur Leukocyte Esterase Urine RBC Urine WBC Urine Bacteria Stool Occult Blood Labs on day of discharge: Labs from last 24 hours 05/10/18 06:35 Total Counted 100 Neutrophils % (Manual) 92 H Band Neutrophils % 1.0 Lymphocytes % (Manual) 7 L Platelet Estimate Normal Hypochromasia 1+ Macrocytosis 1+ Preliminary micro results at discharge 05/09/18 12:42 Sputum Culture - Preliminary Sputum - Expectorated Sputum 05/09/18 08:55 Urine Culture - Preliminary Urine,Catheterized 05/07/18 15:40 Blood Culture - Preliminary Blood NO GROWTH AFTER 48 HOURS 05/07/18 15:37 Blood Culture - Preliminary Blood NO GROWTH AFTER 48 HOURS - Additional Comments Chest x-ray 05/09/2018 IMPRESSION: Chronic changes with right lower lobe pneumonia X-ray of left hip 05/09/2018 IMPRESSION: Mild osteoarthritis of the left hip X-ray of right hip 05/09/2018 IMPRESSION: Mild osteoarthritis of the right X-ray of lumbar sacral spine 05/09/2018 IMPRESSION: 1. No acute finding lumbar spine. 2. Bilateral renal calculi with staghorn calculus on the right DS: Diagnosis - Discharge Diagnosis (1) Bronchitis Status: Acute (2) Ischemic cardiomyopathy Status: Chronic (3) Elevated white blood cell count Status: Acute (4) Hx of arteriosclerotic cardiovascular disease Status: Chronic (5) Hypoxemia Status: Acute (6) Debility Status: Chronic (7) Back pain Status: Acute (8) Pelvic pain Status: Acute (9) Right lower lobe pneumonia Status: Acute (10) Anemia Status: Chronic Discharge Plan - Patient Discharge Instructions Additional Instructions: thickened liquids recommended Patient Instructions: Pneumonia-Adult - Follow up Plan Follow up with: Ben Espinal MD [Family Provider] - 1 week (will be seen in [place]) Home Medications: Home Medications Medication Instructions Recorded Confirmed Type Acetaminophen 500 mg PO Q6HP PRN 10/23/17 05/08/18 History Aspirin 81 mg PO DAILY 10/23/17 05/07/18 History Carvedilol [Carvedilol 3.125mg Tab] 1.5625 mg PO DAILY 10/23/17 05/07/18 History Cholecalciferol (Vitamin D3) 2,000 unit PO DAILY 10/23/17 05/07/18 History [Vitamin D3 1,000 Unit Tab] Clopidogrel Bisulfate [Plavix 75mg 75 mg PO DAILY 10/23/17 05/07/18 History Tab] Donepezil HCl [Aricept 5mg] 5 mg PO HS 10/23/17 05/07/18 History Mirtazapine [Remeron 15mg tablet] 15 mg PO HS 10/23/17 05/07/18 History Multivitamin with Minerals 1 each PO DAILY 10/23/17 05/07/18 History [Multivitamins with Minerals] Polyethylene Glycol 3350 [Miralax 17 gm PO DAILY 10/23/17 05/07/18 History 17gm Packet] Simvastatin [Zocor] 10 mg PO HS 10/23/17 05/07/18 History guaiFENesin [Robitussin 200mg/10mL 10 ml PO Q6HP PRN 10/23/17 05/08/18 History Syrup Udc] raNITIdine HCl [Ranitidine HCl] 150 mg PO BID 10/23/17 05/07/18 History Sennosides [Senna Laxative] 17.2 mg PO BIDP PRN 10/24/17 05/08/18 History Ipratropium/Albuterol Sulfate 3 ml IH TID 05/07/18 05/07/18 History [Duoneb 3mL neb] Prescriptions/Medication Reconciliation: New predniSONE [Prednisone 5mg Tab] 5 mg PO DAILY #30 tab Hydrocod/Acet 5/325 mg [[place] 5/325mg tablet] 1 tab PO TID PRN #90 tab PRN Reason: pain Sulfamethoxazole/Trimethoprim [Bactrim DS tablet] 1 each PO BID #14 tablet Continue Carvedilol [Carvedilol 3.125mg Tab] 1.5625 mg PO DAILY Clopidogrel Bisulfate [Plavix 75mg Tab] 75 mg PO DAILY Multivitamin with Minerals [Multivitamins with Minerals] 1 each PO DAILY Polyethylene Glycol 3350 [Miralax 17gm Packet] 17 gm PO DAILY Simvastatin [Zocor] 10 mg PO HS Cholecalciferol (Vitamin D3) [Vitamin D3 1,000 Unit Tab] 2,000 unit PO DAILY guaiFENesin [Robitussin 200mg/10mL Syrup Udc] 10 ml PO Q6HP PRN PRN Reason: Cough Ipratropium/Albuterol Sulfate [Duoneb 3mL neb] 3 ml IH TID Aspirin 81 mg PO DAILY Mirtazapine [Remeron 15mg tablet] 15 mg PO HS raNITIdine HCl [Ranitidine HCl] 150 mg PO BID Sennosides [Senna Laxative] 17.2 mg PO BIDP PRN PRN Reason: Constipation Discontinued Acetaminophen 500 mg PO Q6HP PRN PRN Reason: PAIN Donepezil HCl [Aricept 5mg] 5 mg PO HS
== END 2018-05-11 12:26 ==
LOC: ER 15:06 → 2ND 15:06 → OBSVTOIN 18:00 → 2ND 18:01
PROVIDERS: ADMIT Family Medicine; ATTEND Family Medicine

== ENCOUNTER 2018-05-13 20:28 | Inpatient (IN) ==
[2018-05-13 20:56] LABS: Microscopic, Urine URINE MICROSCOPIC (MICROSCOPIC)
[2018-05-13 20:59] LABS: Appearance,Urine TURBID (Clear); Bilirubin,Urine Negative (Negative); Blood, Urine 3+ (Negative); Color,Urine YELLOW (Yellow); Glucose,Urine (UA) Negative (Negative); Ketones,Urine Negative (Negative); Leukocyte Esterase,Urine 3+ (Negative); PH,Urine 6.5 (5.0-8.5); Protein,Urine 2+ (Negative); Specific Gravity, Urine >= 1.030 (1.005-1.030); Urobilinogen,Urine 0.2 EU/dl (0.2)
[2018-05-13 21:03] LABS: WBC,Urine TNTC #/hpf (0-3)
[2018-05-13 21:04] LABS: Basophils # 0.1 K/mm3 (0-0.2); Basophils % 0.2 % (0.1-2.0); Eosinophils # 0.2 K/mm3 (0.0-0.4); Eosinophils % 1.1 % (0.1-12.0); Lymphocytes # 3.2 K/mm3 (0.7-4.5); Lymphocytes % 14.4 K/mm3 (10-50); Mean Corpuscular HGB Conc 31.1 g/dL (31.8-35.4); Mean Corpuscular Volume 96.3 fl (81-99); Mean Platelet Volume 7.5 fl (7.4-10.4); Monocytes # 0.6 K/mm3 (0.1-1.0); Monocytes % 2.7 % (1.7-9.3); Neutrophils % 81.6 % (37.0-80.0); Platelet Count 416 K/mm3 (142-424); Red Blood Count 2.68 M/mm3 (4.20-5.40)
[2018-05-13 21:09] LABS: Hematocrit 25.8 % (37.0-47.0); White Blood Count 22.1 K/mm3 (4.8-10.8)
--- NOTE | 2018-05-13 21:12 | Emergency Department Note ---
ED Disposition Clinical Impression: Pelvic hematoma in female, Acute on chronic renal insufficiency UTI (urinary tract infection) Qualifiers: Urinary tract infection type: acute cystitis Hematuria presence: without hematuria Qualified Code(s): N30.00 - Acute cystitis without hematuria Elevated white blood cell count Qualifiers: Leukocytosis type: unspecified Qualified Code(s): D72.829 - Elevated white blood cell count, unspecified Sacral fracture, closed Qualifiers: Encounter type: initial encounter Zone of sacrum fracture: unspecified portion of sacrum Qualified Code(s): S32.10XA - Unspecified fracture of sacrum, initial encounter for closed fracture Anemia Qualifiers: Anemia type: unspecified type Qualified Code(s): D64.9 - Anemia, unspecified Sepsis Qualifiers: Sepsis type: sepsis due to unspecified organism Qualified Code(s): A41.9 - Sepsis, unspecified organism Disposition: Admitted As Inpatient Condition on Discharge: Serious - Critical Care Critical Care Time: No Attestation: On 05/13/18, the high probability of a clinically significant, sudden or life threatening deterioration of the following system(s) required my full and direct attention, intervention and personal management. The time I documented below is in addition to time spent performing reported procedures but includes the following listed in this critical care notation. Medical Decision Making - Medical Records Medical records reviewed: Yes: I reviewed the patient's medical records. - [place] Inquiry Pt receiving controlled substance: No Vital Signs: 05/13/18 20:29 05/13/18 21:27 05/13/18 21:30 Temperature 99.5 F Temperature Source Rectal Pulse Rate [Right Radial] 120 H 120 H 112 H Respiratory Rate 20 18 18 Blood Pressure [Right Arm] 95/51 L 87/57 L 90/61 L Blood Pressure Mean [Right Arm] 65 67 70 Blood Pressure Source [Right Arm] Automatic Cuff Automatic Cuff Blood Pressure Position [Right Arm] Supine Supine 02 Sat by Pulse Oximetry 91 L 90 L 93 L Oxygen Delivery Method Room Air Room Air Room Air Oxygen Flow Rate (LPM) 05/13/18 22:00 05/13/18 22:30 Temperature Temperature Source Pulse Rate [Right Radial] 121 H 115 H Respiratory Rate 20 18 Blood Pressure [Right Arm] 126/76 128/75 Blood Pressure Mean [Right Arm] 92 92 Blood Pressure Source [Right Arm] Automatic Cuff Blood Pressure Position [Right Arm] Supine 02 Sat by Pulse Oximetry 91 L 91 L Oxygen Delivery Method Nasal Cannula Room Air Oxygen Flow Rate (LPM) 2 - Lab Data Lab results reviewed: Yes: I reviewed the patient's lab results. Lab Results 05/13/18 20:44: Urine Color Yellow, Urine Appearance Turbid, Urine pH 6.5, Ur Specific [place] >= 1.030, Urine Protein 2+, Urine Glucose (UA) Negative, Urine Ketones Negative, Urine Blood 3+, Urine Nitrate Negative, Urine Bilirubin Negative, Urine Urobilinogen 0.2, Ur Leukocyte Esterase 3+ A, Urine RBC 10-20, Urine WBC Tntc 05/13/18 20:45: WBC 22.1 H*, RBC 2.68 L, Hgb 8.0 L, Hct 25.8 L, MCV 96.3, MCH 30.0, MCHC 31.1 L, RDW 16.0, Plt Count 416 D, MPV 7.5, Neut % (Auto) 81.6 H, Lymph % (Auto) 14.4, [place] % (Auto) 2.7, Eos % (Auto) 1.1, Baso % (Auto) 0.2, Neut # (Auto) 18.0 H, Lymph # (Auto) 3.2, [place] # (Auto) 0.6, Eos # (Auto) 0.2, Baso # (Auto) 0.1, Total Counted 100, Neutrophils % (Manual) 86 H, Band Neutrophils % 3.0, Lymphocytes % (Manual) 8 L, Monocytes % (Manual) 2, Eosinophils % (Manual) 1, Hypersegmented Neuts 1+, Platelet Estimate Normal, Polychromasia 1+, Hypochromasia 3+, Anisocytosis 1+, Macrocytosis 1+ 05/13/18 20:45: Sodium 143, Potassium 4.3, Chloride 110 H, Carbon Dioxide 20 L, Anion Gap 17.3 H, BUN 41 H, Creatinine 1.69 H, Estimated Creat Clear 17, Estimated GFR 29 L, Est GFR ( Amer) 35 L, Glucose 145 H, Calcium 8.1 L, Total Bilirubin 0.3, AST 27, ALT 25, Alkaline Phosphatase 101, Total Protein 5.9 L, Albumin 2.1 L, Globulin 3.8 H, Albumin/Globulin Ratio 0.6 L, Amylase 59, Lipase 111 05/13/18 20:45: Lactate 3.3 H 05/13/18 22:25: Stool Occult Blood Negative Result diagrams: 05/13/18 20:45 05/13/18 20:45 Orders (Tests/Meds): ED MEDICATIONS Generic Name Dose Route Start Last Admin Trade Name Freq PRN Reason Stop Dose Admin Sodium Chloride 1,440 mls @ 720 mls/hr 05/13/18 21:33 05/13/18 21:35 Sod Chlor 0.9% 1000ml Bag 30 ml/kg infuse over 2 hr (1440 ml) 05/13/18 23:32 720 mls/hr IV Administration .Q2H ONE Cefepime HCl 1 gm/ Sodium 50 mls @ 100 mls/hr 05/13/18 22:45 05/13/18 22:39 Chloride IV 05/27/18 22:44 100 mls/hr Q12H CONCHITA Administration Protocol Vancomycin HCl 1,000 mg/ 250 mls @ 125 mls/hr 05/13/18 22:45 Sodium Chloride IV 05/27/18 22:44 Q24H CONCHITA Discontinued Medications Generic Name Dose Route Start Last Admin Trade Name Freq PRN Reason Stop Dose Admin Sodium Chloride 1,000 mls @ 999 mls/hr 05/13/18 20:45 05/13/18 20:44 Sod Chlor 0.9% 1000ml Bag IV 05/13/18 21:45 999 mls/hr .Q1H1M CONCHITA Administration Morphine Sulfate 2 mg 05/13/18 22:29 05/13/18 22:39 Morphine 2mg/Ml Syringe IV 05/13/18 22:30 2 mg ONCE ONE Administration Ondansetron HCl 4 mg 05/13/18 22:29 05/13/18 22:39 Zofran 4mg/2ml Vial IV 05/13/18 22:30 4 mg ONCE ONE Administration ORDERS Category Date Time Status CT abdomen pelvis wo con Stat Cat Scan 05/13/18 20:40 Taken Chest XR AP view [XR chest AP] Stat Exams 05/13/18 20:40 Taken Occult Blood,Stool Stat Lab 05/13/18 22:25 Ordered Urinalysis and Microscopic Stat Lab 05/13/18 20:44 Ordered Blood Culture Stat Micro 05/13/18 20:44 Ordered Urine Culture Stat Micro 05/13/18 20:44 Received - Radiology Data #1 Image(s): Chest Image Reviewed: Yes I reviewed the patient's radiology image Preliminary Findings: Abnormal (similiar to prev ) - CT Data CT Scan: Abdomen, Pelvis Time Received: 22:[address] Reviewed: Yes: I have viewed the radiologist's interpretation Preliminary Findings: Abnormal (pelvic hematoma /sacral fx ) - Physician Consults Physician Consulted: sound Reason -: Admission - Tissue Perfus/Sepsis Re-Eval Reperfusion Exam Performed: Yes Date Performed: 05/13/18 Time Performed: 22:59 Sepsis Follow-Up: Yes: Respiratory exam, Capillary refill, Peripheral pulse st rength, Peripheral pulse location, Vital Signs Nausea/Vomiting/Diarrhea HPI - General Chief complaint: Abdominal Pain Stated complaint: abdominal pain Time Seen by Provider: 05/13/18 20:40 Mode of Arrival: EMS Source of Information: Patient, Relative, EMS, Medical Record Limitations: Physical Limitations Description of Symptoms (Recalled from ER Triage Doc. by RN): pt dc'd from [facility] yesterday where she was treated for pna and uti. today patient presents to ed with c/o severe abdominal pain and "rectal pain." ems reports low o2 sats upon arrival to scene at 88%. - History of Present Illness HPI Narrative: pt with recent admit for uti and pneumonia and was d/c to [facility] - pt with rectal pain tonight but no bleeding or fever and no vomiting - MD complaint: other (rectal pain ) Onset (ago): day(s) Associated Abdominal Pain: Yes Location of pain: other (rectal ) Severity: moderate Consistency: colicky Associated symptoms: denies other symptoms - Related Data Home Medications Medication Instructions Recorded Confirmed Aspirin 81 mg PO DAILY 10/23/17 05/13/18 Carvedilol [Carvedilol 3.125mg Tab] 1.5625 mg PO DAILY 10/23/17 05/13/18 Cholecalciferol (Vitamin D3) 2,000 unit PO DAILY 10/23/17 05/13/18 [Vitamin D3 1,000 Unit Tab] Clopidogrel Bisulfate [Plavix 75mg 75 mg PO DAILY 10/23/17 05/13/18 Tab] Mirtazapine [Remeron 15mg tablet] 15 mg PO HS 10/23/17 05/13/18 Multivitamin with Minerals 1 each PO DAILY 10/23/17 05/13/18 [Multivitamins with Minerals] Polyethylene Glycol 3350 [Miralax 17 gm PO DAILY 10/23/17 05/13/18 17gm Packet] Simvastatin [Zocor] 10 mg PO HS 10/23/17 05/13/18 guaiFENesin [Robitussin 200mg/10mL 10 ml PO Q6HP PRN 10/23/17 05/13/18 Syrup Udc] raNITIdine HCl [Ranitidine HCl] 150 mg PO BID 10/23/17 05/13/18 Sennosides [Senna Laxative] 17.2 mg PO BIDP PRN 10/24/17 05/13/18 Ipratropium/Albuterol Sulfate 3 ml IH TID 05/07/18 05/13/18 [Duoneb 3mL neb] Donepezil HCl [Aricept 5mg] 5 mg PO DAILY 05/13/18 05/13/18 Lutein 10 mg PO DAILY 05/13/18 05/13/18 Sulfamethoxazole/Trimethoprim 1 each PO BID 05/13/18 05/13/18 [Bactrim DS tablet] predniSONE [Prednisone 5mg 5 mg PO DAILY 05/13/18 05/13/18 Tab] Previous Rx's Medication Instructions Recorded Hydrocod/Acet 5/325 mg [[place] 1 tab PO TID PRN #90 tab 05/11/18 5/325mg tablet] Allergies Allergy/AdvReac Type Severity Reaction Status Date / Time Penicillins Allergy Unknown Verified 05/13/18 20:40 streptomycin Allergy Unknown Verified 05/13/18 20:40 [facility] History I have reviewed the patient's past medical history: Yes Medical History: Reports:: Atherosclerotic Heart Disease, Chronic Obstructive Pulmonary Disease (COPD), Urinary Tract Infection Denies:: Cancer, Diabetes Mellitus Type 1, Diabetes Mellitus Type 2, Internal Pacemaker, MRSA Other Medical History: Reports: Anemia, Cataracts, Other (pneumonia) Laterality Cases: Bilateral: Tonsillectomy Other Surgeries: Yes: Angioplasty, Cardiac Catheterization (Stenting of the mid left LAD 12/20/2010.). No: Pacemaker Amputation: No Fractures: No - Social History Smoking Status: Former smoker Tobacco Type: cigarettes #Yrs smoked (if former smoker): 50 Alcohol Intake: never Occupational Status: retired Housing: penitentiary Household Members: other Comment: Hobbies: Loves to read - Psychiatric History Expresses thoughts of harming self/others: None Suicide Plan Description: No Plan Family Hx:: Unable to obtain (Record obtained from office notes), Cancer, Diabetes, Hypertension Comment: Her father and mother both had hypertension. Her mother had cancer. A maternal grandmother had brain cancer. A maternal aunt had Beatties. She had a daughter that of cancer apparently breast cancer. She has siblings that have diabetes. It is recorded that she has 2 brothers and 2 sisters. ROS Obtained: Yes All systems reviewed & no additional complaints - Constitutional Constitutional: Denies fever(s) - Eyes Eyes: Denies change in vision - ENT Ears, Nose, Mouth, and Throat: Denies sore throat - Cardiovascular Cardiovascular: Denies chest pain - Respiratory Respiratory: No cough - Gastrointestinal Gastrointestingal: Reports: nausea. Denies: abdominal pain, diarrhea, bright red blood in stools, vomiting - Genitourinary Female Genitourinary: Denies abnormal vaginal bleeding - Musculoskeletal Musculoskeletal: Denies neck pain - Integumentary/Breasts Skin/Breast: Denies rash - Neurologic Neurologic: Denies focal weakness, Denies seizure-like activity Physical Exam - General General appearance: alert - Head Head exam: normocephalic - Eye Eye exam: Present: PERRL, EOMI - ENT ENT exam: Present: mucous membranes dry - Neck Neck exam: Present: trachea midline - Respiratory Respiratory exam: Present: other (dec bs bilat ). Absent: respiratory distress - Cardiovascular Cardiovascular exam: Present: regular rate, systolic murmur, +S4 - Abdominal Exam Abdominal exam: Present: soft. Absent: tenderness, guarding - Rectal Exam Rectal exam: Present: normal inspection, heme (-) stool, other (hard stool) - Extremities Exam Extremities exam: Absent: calf tenderness - Neurological Exam Neurological exam: Present: alert, CN II-XII intact - Psychiatric Psychiatric exam: Present: anxious - Skin Skin exam: Absent: rash
[2018-05-13 21:17] LABS: Albumin Level 2.1 gm/dL (3.4-5.0); Albumin/Globulin Ratio 0.6 (1.1-1.8); Anion Gap 17.3 mEq/L (5-15); Bilirubin,Total 0.3 mg/dL (0.2-1.0); Calcium 8.1 mg/dL (8.5-10.1); Globulin 3.8 gm/dl (1.3-3.2); Potassium 4.3 mmoL/L (3.5-5.1); Total Protein,Serum 5.9 gm/dL (6.4-8.2)
[2018-05-13 21:29] LABS: Anisocytosis 1+; Eosinophils % 1 % (0-3); Hypochromasia 3+; Lymphocytes % 8 % (10-50); Macrocytosis 1+; Monocytes % 2 % (2-9); Neutrophils % 86 % (42-76); Polychromasia 1+; Total Cells Counted 100
[2018-05-14 07:20] LABS: Anion Gap 12.7 mEq/L (5-15); Potassium 3.7 mmoL/L (3.5-5.1)
[2018-05-14 08:10] LABS: Basophils # 0.1 K/mm3 (0-0.2); Basophils % 0.3 % (0.1-2.0); Eosinophils # 0.3 K/mm3 (0.0-0.4); Eosinophils % 1.4 % (0.1-12.0); Lymphocytes # 2.8 K/mm3 (0.7-4.5); Lymphocytes % 14.3 K/mm3 (10-50); Mean Corpuscular HGB Conc 30.7 g/dL (31.8-35.4); Mean Corpuscular Volume 97.7 fl (81-99); Mean Platelet Volume 8.2 fl (7.4-10.4); Monocytes # 0.5 K/mm3 (0.1-1.0); Monocytes % 2.3 % (1.7-9.3); Neutrophils # 16.2 K/mm3 (1.8-7.8); Neutrophils % 81.8 % (37.0-80.0); Platelet Count 330 K/mm3 (142-424); Red Blood Count 2.18 M/mm3 (4.20-5.40); Red Cell Distribution Width 17.5 % (11.5-17.5); White Blood Count 19.8 K/mm3 (4.8-10.8)
[2018-05-14 08:14] LABS: Hematocrit 21.3 % (37.0-47.0); Hemoglobin 6.6 g/dL (12.2-16.2)
[2018-05-14 08:20] LABS: Calcium 6.8 mg/dL (8.5-10.1)
--- NOTE | 2018-05-14 10:17 | Pharmacy Consult Notes ---
[facility] Pharmacy VTE Monitoring - Patient Demographics Admission date: 05/13/18 Report Date: 05/14/18 Time: 10:16 Allergies/Adverse Reactions: Patient Allergies Penicillins Allergy (Unknown, Verified 05/13/18 20:40) streptomycin Allergy (Unknown, Verified 05/13/18 20:40) Height: 1.65 m Weight: 49.073 kg Patient Problems: Current Active Problems Acute on chronic renal insufficiency (Acute) Elevated white blood cell count (Acute) Anemia (Chronic) UTI (urinary tract infection) (Acute) Pelvic hematoma in female (Acute) Sacral fracture, closed (Acute) Sepsis (Acute) - VTE Risk Labs: VTE Related Lab Results Hgb 6.6 g/dL (12.2-16.2) L* 05/14/18 08:00 Hct 21.3 % (37.0-47.0) L* 05/14/18 08:00 Plt Count 330 K/mm3 (142-424) 05/14/18 08:00 BUN 37 mg/dL (7-18) H 05/14/18 06:30 Creatinine 1.30 mg/dL (0.55-1.02) H D 05/14/18 06:30 Estimated Creat Clear 23 mL/min (0-300) 05/14/18 06:30 Was VTE Risk Assessment Performed: Yes VTE Risk Level: Moderate Risk - Prophylaxis VTE Prophylaxis Ordered?: Yes Types of VTE Prophylaxis: TEDS Knee High Location of Applied Device: Bilateral Lower Extremeties
[2018-05-14 10:20] LABS: Helmet Cells 1+; Lymphocytes % 12 % (10-50); Monocytes % 2 % (2-9); Neutrophils % 86 % (42-76); Total Cells Counted 100
[2018-05-14 10:21] LABS: Hypochromasia 2+
--- NOTE | 2018-05-14 11:55 | History & Physical Report ---
*Admission Date: 05/13/18 *Chief complaint: nauea, vomiting and diarrhea *History of present illness: Patient presented to ED with some nausea, vomiting and mild diarrhea that was ongoing for few days. She was also having mild fever and chills with some abdominal pain. She was also having some altered mental status and history was limited secondary to this. [facility] History Medical History: Reports:: Atherosclerotic Heart Disease, Chronic Obstructive Pulmonary Disease (COPD), Coronary Artery Disease, Urinary Tract Infection Denies:: Cancer, Diabetes Mellitus Type 1, Diabetes Mellitus Type 2, Internal Pacemaker, MRSA Other Medical History: Reports: Anemia, Cataracts, Other (pneumonia) Laterality Cases: Bilateral: Tonsillectomy Other Surgeries: Yes: Angioplasty, Cardiac Catheterization (Stenting of the mid left LAD 12/20/2010.). No: Pacemaker Amputation: No Fractures: No - *Social History Smoking Status: Former smoker Tobacco Type: cigarettes #Yrs smoked (if former smoker): 50 Alcohol Intake: never Occupational Status: retired Housing: senior living Household Members: other - Psychiatric History Expresses thoughts of harming self/others: None Suicide Plan Description: No Plan *Family Hx:: Unable to obtain, Cancer, Diabetes, Hypertension Review of Systems - Constitutional Denies chills - Eyes Denies blind spots - *Cardiovascular Denies chest pain - *Respiratory Denies chest congestion - *Gastrointestinal Reports abdominal pain - *Neurologic Denies localized weakness, Denies seizure-like activity - Endocrine Denies cold intolerance Meds Home Medications Medication Instructions Recorded Confirmed Type Aspirin 81 mg PO DAILY 10/23/17 05/14/18 History Carvedilol [Carvedilol 3.125mg Tab] 1.5625 mg PO DAILY 10/23/17 05/14/18 History Clopidogrel Bisulfate [Plavix 75mg 75 mg PO DAILY 10/23/17 05/14/18 History Tab] Mirtazapine [Remeron 15mg tablet] 15 mg PO HS 10/23/17 05/14/18 History Multivitamin with Minerals 1 each PO DAILY 10/23/17 05/14/18 History [Multivitamins with Minerals] Polyethylene Glycol 3350 [Miralax 17 gm PO DAILY 10/23/17 05/14/18 History 17gm Packet] Simvastatin [Zocor] 10 mg PO HS 10/23/17 05/14/18 History guaiFENesin [Robitussin 200mg/10mL 10 ml PO Q6HP PRN 10/23/17 05/13/18 History Syrup Udc] raNITIdine HCl [Ranitidine HCl] 150 mg PO BID 10/23/17 05/14/18 History Sennosides [Senna Laxative] 17.2 mg PO BIDP PRN 10/24/17 05/13/18 History Ipratropium/Albuterol Sulfate 3 ml IH TID 05/07/18 05/14/18 History [Duoneb 3mL neb] Donepezil HCl [Aricept 5mg] 5 mg PO HS 05/13/18 05/14/18 History Lutein 10 mg PO DAILY 05/13/18 05/14/18 History Sulfamethoxazole/Trimethoprim 1 each PO BID 05/13/18 05/14/18 History [Bactrim DS tablet] predniSONE [Prednisone 5mg 5 mg PO DAILY 05/13/18 05/14/18 History Tab] Carboxymethylcellulose Sodium 1 drop OP BID 05/14/18 05/14/18 History [Lubricating Plus] Cholecalciferol (Vitamin D3) 2,000 unit PO DAILY 05/14/18 05/14/18 History [Vitamin D3] Guaifenesin/Dextromethorphan 1 each PO BID 05/14/18 05/14/18 History [Mucinex Dm ER 600-30 mg Tablet] Allergies Allergy/AdvReac Type Severity Reaction Status Date / Time Penicillins Allergy Unknown Verified 05/13/18 20:40 streptomycin Allergy Unknown Verified 05/13/18 20:40 Exam Vital signs and Labs for Last 24 Hours: Temp Pulse Resp BP Pulse Ox 97.4 F L 107 H 18 108/64 L 90 L 05/14/18 11:50 05/14/18 11:50 05/14/18 11:50 05/14/18 11:50 05/14/18 11:50 Laboratory Results - last 24 hr 05/13/18 20:44: Urine Color Yellow, Urine Appearance Turbid, Urine pH 6.5, Ur Specific [place] >= 1.030, Urine Protein 2+, Urine Glucose (UA) Negative, Urine Ketones Negative, Urine Blood 3+, Urine Nitrate Negative, Urine Bilirubin Negative, Urine Urobilinogen 0.2, Ur Leukocyte Esterase 3+ A, Urine RBC 10-20, Urine WBC Tntc 05/13/18 20:45: WBC 22.1 H*, RBC 2.68 L, Hgb 8.0 L, Hct 25.8 L, MCV 96.3, MCH 30.0, MCHC 31.1 L, RDW 16.0, Plt Count 416 D, MPV 7.5, Neut % (Auto) 81.6 H, Lymph % (Auto) 14.4, [place] % (Auto) 2.7, Eos % (Auto) 1.1, Baso % (Auto) 0.2, Neut # (Auto) 18.0 H, Lymph # (Auto) 3.2, [place] # (Auto) 0.6, Eos # (Auto) 0.2, Baso # (Auto) 0.1, Total Counted 100, Neutrophils % (Manual) 86 H, Band Neut rophils % 3.0, Lymphocytes % (Manual) 8 L, Monocytes % (Manual) 2, Eosinophils % (Manual) 1, Hypersegmented Neuts 1+, Platelet Estimate Normal, Polychromasia 1+, Hypochromasia 3+, Anisocytosis 1+, Macrocytosis 1+ 05/13/18 20:45: Sodium 143, Potassium 4.3, Chloride 110 H, Carbon Dioxide 20 L, Anion Gap 17.3 H, BUN 41 H, Creatinine 1.69 H, Estimated Creat Clear 17, Estimated GFR 29 L, Est GFR ( Amer) 35 L, Glucose 145 H, Calcium 8.1 L, Total Bilirubin 0.3, AST 27, ALT 25, Alkaline Phosphatase 101, Total Protein 5.9 L, Albumin 2.1 L, Globulin 3.8 H, Albumin/Globulin Ratio 0.6 L, Amylase 59, Lipase 111 05/13/18 20:45: Lactate 3.3 H 05/13/18 22:25: Stool Occult Blood Negative 05/14/18 00:35: Lactate 3.1 H 05/14/18 02:45: Lactate 1.9 05/14/18 06:30: Sodium 144, Potassium 3.7, Chloride 116 H, Carbon Dioxide 19 L, Anion Gap 12.7, BUN 37 H, Creatinine 1.30 H D, Estimated Creat Clear 23, Estimated GFR 39 L, Est GFR ( Amer) 47 L D, Glucose 95 D, Calcium 6.8 L D 05/14/18 07:55: Blood Type Confirm A Positive 05/14/18 08:00: WBC 19.8 H, RBC 2.18 L, Hgb 6.6 L*, Hct 21.3 L*, MCV 97.7, MCH 30.0, MCHC 30.7 L, RDW 17.5, Plt Count 330, MPV 8.2, Neut % (Auto) 81.8 H, Lymph % (Auto) 14.3, [place] % (Auto) 2.3, Eos % (Auto) 1.4, Baso % (Auto) 0.3, Neut # (Auto) 16.2 H, Lymph # (Auto) 2.8, [place] # (Auto) 0.5, Eos # (Auto) 0.3, Baso # (Auto) 0.1, Total Counted 100, Neutrophils % (Manual) 86 H, Lymphocytes % (Manual) 12, Monocytes % (Manual) 2, Platelet Estimate Normal, Hypochromasia 2+, Helmet Cells 1+, Acanthocytes (Spur) 1+, Schistocytes 1+ 05/14/18 08:00: Blood Type A Positive, Antibody Screen Negative, Crossmatch (AHG) See Detail I & O for Last 24 hours: Intake & Output 05/11/18 05/12/18 05/13/18 05/14/18 11:59 11:59 11:59 11:59 Intake Total 2319 / 2319 Balance 2319 / 2319 Weight 108 lb 3 oz - *Routine HEENT Exam Head: Present: normocephalic Eye: Present: EOMI ENT: Present: mucous membranes moist - *Routine Neck Exam Present: supple - *Routine Respiratory Exam Present: CTA bilaterally. Absent: accessory muscle use - *Routine Cardiovascular Exam Present: RRR - *Routine Abdominal Exam Present: soft, normoactive bowel sounds, tenderness (lower abdominal pain that is diffuse) - *Routine Extremities Exam Present: normal capillary refill Assessment and Plan (1) Sepsis Current visit: Yes Status: Acute Qualifiers: Sepsis type: sepsis due to unspecified organism Qualified Code(s): A41.9 - Sepsis, unspecified organism Category: Medical Code(s): A41.9 - Sepsis, unspecified organism (2) Acute on chronic renal insufficiency Current visit: Yes Status: Acute Category: Medical Code(s): N28.9 - Disorder of kidney and ureter, unspecified; N18.9 - Chronic kidney disease, unspecified (3) Pelvic hematoma in female Current visit: Yes Status: Acute Category: Medical Code(s): N94.89 - Other specified conditions associated with female genital organs and menstrual cycle (4) Sacral fracture, closed Current visit: Yes Status: Acute Qualifiers: Encounter type: initial encounter Zone of sacrum fracture: unspecified portion of sacrum Qualified Code(s): S32.10XA - Unspecified fracture of sacrum, initial encounter for closed fracture Category: Medical Code(s): S32.10XA - Unspecified fracture of sacrum, initial encounter for closed fracture (5) UTI (urinary tract infection) Current visit: Yes Status: Acute Qualifiers: Urinary tract infection type: acute cystitis Hematuria presence: without hematuria Qualified Code(s): N30.00 - Acute cystitis without hematuria Category: Medical Code(s): N39.0 - Urinary tract infection, site not specified (6) Bilateral pneumonia Current visit: No Status: Acute Category: Medical Code(s): J18.9 - Pneumonia, unspecified organism - Assessment and plan all Dx Assessment and Plan for all problems:: Will continue broad spectrum abx for sepsis secondary to acute complicated cystitis and bilateral pneumonia due to uncertain organism at this point. Will transfuse 2 units of pRBCs for his anemia after getting consent from the daughter, who is the POA given. Ultrasound of renal and bladder for assessing the hematoma identified on CT, will keep patient stable and talk to family for further management.
--- NOTE | 2018-05-14 12:58 | Pharmacy Consult Notes ---
- Pharmacy Consult Date: 05/14/18 Time: 12:57 Referring provider: DR. MISHRA Reason for Consult:: VANCOMYCIN DOSING Allergies and ADEs:: Allergies Allergy/AdvReac Type Severity Reaction Status Date / Time Penicillins Allergy Unknown Verified 05/13/18 20:40 streptomycin Allergy Unknown Verified 05/13/18 20:40 Home Medications:: Home Medications Medication Instructions Recorded Confirmed Type Aspirin 81 mg PO DAILY 10/23/17 05/14/18 History Carvedilol [Carvedilol 3.125mg Tab] 1.5625 mg PO DAILY 10/23/17 05/14/18 History Clopidogrel Bisulfate [Plavix 75mg 75 mg PO DAILY 10/23/17 05/14/18 History Tab] Mirtazapine [Remeron 15mg tablet] 15 mg PO HS 10/23/17 05/14/18 History Multivitamin with Minerals 1 each PO DAILY 10/23/17 05/14/18 History [Multivitamins with Minerals] Polyethylene Glycol 3350 [Miralax 17 gm PO DAILY 10/23/17 05/14/18 History 17gm Packet] Simvastatin [Zocor] 10 mg PO HS 10/23/17 05/14/18 History guaiFENesin [Robitussin 200mg/10mL 10 ml PO Q6HP PRN 10/23/17 05/13/18 History Syrup Udc] raNITIdine HCl [Ranitidine HCl] 150 mg PO BID 10/23/17 05/14/18 History Sennosides [Senna Laxative] 17.2 mg PO BIDP PRN 10/24/17 05/13/18 History Ipratropium/Albuterol Sulfate 3 ml IH TID 05/07/18 05/14/18 History [Duoneb 3mL neb] Donepezil HCl [Aricept 5mg] 5 mg PO HS 05/13/18 05/14/18 History Lutein 10 mg PO DAILY 05/13/18 05/14/18 History Sulfamethoxazole/Trimethoprim 1 each PO BID 05/13/18 05/14/18 History [Bactrim DS tablet] predniSONE [Prednisone 5mg 5 mg PO DAILY 05/13/18 05/14/18 History Tab] Carboxymethylcellulose Sodium 1 drop OP BID 05/14/18 05/14/18 History [Lubricating Plus] Cholecalciferol (Vitamin D3) 2,000 unit PO DAILY 05/14/18 05/14/18 History [Vitamin D3] Guaifenesin/Dextromethorphan 1 each PO BID 05/14/18 05/14/18 History [Mucinex Dm ER 600-30 mg Tablet] Height: 1.65 m Weight: 49.073 kg Laboratory Results:: Laboratory Results - last 24 hr 05/13/18 20:44: Urine Color Yellow, Urine Appearance Turbid, Urine pH 6.5, Ur Specific [place] >= 1.030, Urine Protein 2+, Urine Glucose (UA) Negative, Urine Ketones Negative, Urine Blood 3+, Urine Nitrate Negative, Urine Bilirubin Negative, Urine Urobilinogen 0.2, Ur Leukocyte Esterase 3+ A, Urine RBC 10-20, Urine WBC Tntc 05/13/18 20:45: WBC 22.1 H*, RBC 2.68 L, Hgb 8.0 L, Hct 25.8 L, MCV 96.3, MCH 30.0, MCHC 31.1 L, RDW 16.0, Plt Count 416 D, MPV 7.5, Neut % (Auto) 81.6 H, Lymph % (Auto) 14.4, [place] % (Auto) 2.7, Eos % (Auto) 1.1, Baso % (Auto) 0.2, Neut # (Auto) 18.0 H, Lymph # (Auto) 3.2, [place] # (Auto) 0.6, Eos # (Auto) 0.2, Baso # (Auto) 0.1, Total Counted 100, Neutrophils % (Manual) 86 H, Band Neutrophils % 3.0, Lymphocytes % (Manual) 8 L, Monocytes % (Manual) 2, Eosinophils % (Manual) 1, Hypersegmented Neuts 1+, Platelet Estimate Normal, Polychromasia 1+, Hypochromasia 3+, Anisocytosis 1+, Macrocytosis 1+ 05/13/18 20:45: Sodium 143, Potassium 4.3, Chloride 110 H, Carbon Dioxide 20 L, Anion Gap 17.3 H, BUN 41 H, Creatinine 1.69 H, Estimated Creat Clear 17, Estimat ed GFR 29 L, Est GFR ( Amer) 35 L, Glucose 145 H, Calcium 8.1 L, Total Bilirubin 0.3, AST 27, ALT 25, Alkaline Phosphatase 101, Total Protein 5.9 L, Albumin 2.1 L, Globulin 3.8 H, Albumin/Globulin Ratio 0.6 L, Amylase 59, Lipase 111 05/13/18 20:45: Lactate 3.3 H 05/13/18 22:25: Stool Occult Blood Negative 05/14/18 00:35: Lactate 3.1 H 05/14/18 02:45: Lactate 1.9 05/14/18 06:30: Sodium 144, Potassium 3.7, Chloride 116 H, Carbon Dioxide 19 L, Anion Gap 12.7, BUN 37 H, Creatinine 1.30 H D, Estimated Creat Clear 23, Estimated GFR 39 L, Est GFR ( Amer) 47 L D, Glucose 95 D, Calcium 6.8 L D 05/14/18 07:55: Blood Type Confirm A Positive 05/14/18 08:00: WBC 19.8 H, RBC 2.18 L, Hgb 6.6 L*, Hct 21.3 L*, MCV 97.7, MCH 30.0, MCHC 30.7 L, RDW 17.5, Plt Count 330, MPV 8.2, Neut % (Auto) 81.8 H, Lymph % (Auto) 14.3, [place] % (Auto) 2.3, Eos % (Auto) 1.4, Baso % (Auto) 0.3, Neut # (Auto) 16.2 H, Lymph # (Auto) 2.8, [place] # (Auto) 0.5, Eos # (Auto) 0.3, Baso # (Auto) 0.1, Total Counted 100, Neutrophils % (Manual) 86 H, Lymphocytes % (Manual) 12, Monocytes % (Manual) 2, Platelet Estimate Normal, Hypochromasia 2+, Helmet Cells 1+, Acanthocytes (Spur) 1+, Schistocytes 1+ 05/14/18 08:00: Blood Type A Positive, Antibody Screen Negative, Crossmatch (AHG) See Detail Medical History: Reports:: Atherosclerotic Heart Disease, Chronic Obstructive Pulmonary Disease (COPD), Coronary Artery Disease, Urinary Tract Infection Denies:: Cancer, Diabetes Mellitus Type 1, Diabetes Mellitus Type 2, Internal Pacemaker, MRSA Assessment and Plan (1) Sepsis Current visit: Yes Status: Acute Qualifiers: Sepsis type: sepsis due to unspecified organism Qualified Code(s): A41.9 - Sepsis, unspecified organism Category: Medical Code(s): A41.9 - Sepsis, unspecified organism (2) Acute on chronic renal insufficiency Current visit: Yes Status: Acute Category: Medical Code(s): N28.9 - Disorder of kidney and ureter, unspecified; N18.9 - Chronic kidney disease, unspecified (3) Pelvic hematoma in female Current visit: Yes Status: Acute Category: Medical Code(s): N94.89 - Other specified conditions associated with female genital organs and menstrual cycle (4) Sacral fracture, closed Current visit: Yes Status: Acute Qualifiers: Encounter type: initial encounter Zone of sacrum fracture: unspecified portion of sacrum Qualified Code(s): S32.10XA - Unspecified fracture of sacrum, initial encounter for closed fracture Category: Medical Code(s): S32.10XA - Unspecified fracture of sacrum, initial encounter for closed fracture (5) UTI (urinary tract infection) Current visit: Yes Status: Acute Qualifiers: Urinary tract infection type: acute cystitis Hematuria presence: without hematuria Qualified Code(s): N30.00 - Acute cystitis without hematuria Category: Medical Code(s): N39.0 - Urinary tract infection, site not specified (6) Bilateral pneumonia Current visit: No Status: Acute Category: Medical Code(s): J18.9 - Pneumonia, unspecified organism - Assessment and plan all Dx Assessment and Plan for all problems:: BASED ON PATIENT FACTORS, RECOMMEND VANCOMYCIN 1 GM IV ONCE, FOLLOWED BY VANCOMYCIN 750 MG IV Q36H. PHARMACY WILL FOLLOW DAILY AND ADJUST APPROPRIATE.
[2018-05-14 19:53] LABS: Hematocrit 29.5 % (37.0-47.0); Hemoglobin 9.8 g/dL (12.2-16.2)
[2018-05-15 06:51] LABS: Basophils % 0.2 % (0.1-2.0); Eosinophils # 0.6 K/mm3 (0.0-0.4); Eosinophils % 5.5 % (0.1-12.0); Hemoglobin 9.6 g/dL (12.2-16.2); Lymphocytes # 1.7 K/mm3 (0.7-4.5); Lymphocytes % 14.4 K/mm3 (10-50); Mean Corpuscular HGB Conc 32.1 g/dL (31.8-35.4); Mean Corpuscular Hemoglobin 29.9 pg (27.0-31.2); Mean Corpuscular Volume 93.1 fl (81-99); Mean Platelet Volume 7.8 fl (7.4-10.4); Monocytes # 0.4 K/mm3 (0.1-1.0); Monocytes % 3.7 % (1.7-9.3); Neutrophils # 8.9 K/mm3 (1.8-7.8); Neutrophils % 76.2 % (37.0-80.0); Platelet Count 219 K/mm3 (142-424); Red Blood Count 3.22 M/mm3 (4.20-5.40); Red Cell Distribution Width 17.1 % (11.5-17.5); White Blood Count 11.7 K/mm3 (4.8-10.8)
--- NOTE | 2018-05-15 11:53 | Progress Note ---
Internal Medicine - PN: Subj *Date: 05/15/18 *Time: 09:45 Interval history: Overnight, patient did well and is not having any issues. Exam Vital signs and Labs for Last 24 Hours: Temp Pulse Resp BP Pulse Ox 98.0 F 74 16 106/59 L 96 05/15/18 08:00 05/15/18 08:00 05/15/18 08:00 05/15/18 08:00 05/15/18 08:00 Laboratory Results - last 24 hr 05/14/18 08:00: Blood Type A Positive, Antibody Screen Negative, Crossmatch (AHG) See Detail 05/14/18 19:40: Hgb 9.8 L D, Hct 29.5 L 05/15/18 06:23: WBC 11.7 H D, RBC 3.22 L D, Hgb 9.6 L, Hct 30.0 L, MCV 93.1, MCH 29.9, MCHC 32.1, RDW 17.1, Plt Count 219 D, MPV 7.8, Neut % (Auto) 76.2, Lymph % (Auto) 14.4, [place] % (Auto) 3.7, Eos % (Auto) 5.5, Baso % (Auto) 0.2, Neut # (Auto) 8.9 H, Lymph # (Auto) 1.7, [place] # (Auto) 0.4, Eos # (Auto) 0.6 H, Baso # (Auto) 0.0 I & O for Last 24 hours: Intake & Output 05/12/18 05/13/18 05/14/18 05/15/18 11:59 11:59 11:59 11:59 Intake Total 2319 / 2319 1301 / 1301 Output Total 401 / 401 Balance 2319 / 2319 900 / 900 Weight 108 lb 3 oz 108 lb 3 oz Microbiology Reports for the Last 24 Hours: Microbiology 05/13/18 20:44 Urine,Catheterized Urine Culture - Preliminary NO GROWTH AFTER 24 HOURS - *Routine HEENT Exam Head: Present: normocephalic Eye: Present: EOMI ENT: Present: mucous membranes moist - *Routine Neck Exam Present: supple - *Routine Respiratory Exam Present: CTA bilaterally - *Routine Cardiovascular Exam Present: RRR - *Routine Abdominal Exam Present: soft, normoactive bowel sounds - *Routine Extremities Exam Present: normal capillary refill - *Routine Skin Exam Present: intact - *Routine Neurological Exam Present: alert, oriented X3 Assessment and Plan (1) Sepsis Current visit: Yes Status: Acute Qualifiers: Sepsis type: sepsis due to unspecified organism Qualified Code(s): A41.9 - Sepsis, unspecified organism Category: Medical Code(s): A41.9 - Sepsis, unspecified organism (2) Acute on chronic renal insufficiency Current visit: Yes Status: Acute Category: Medical Code(s): N28.9 - Disorder of kidney and ureter, unspecified; N18.9 - Chronic kidney disease, unspecified (3) Pelvic hematoma in female Current visit: Yes Status: Acute Category: Medical Code(s): N94.89 - Other specified conditions associated with female genital organs and menstrual cycle (4) Sacral fracture, closed Current visit: Yes Status: Acute Qualifiers: Encounter type: initial encounter Zone of sacrum fracture: unspecified portion of sacrum Qualified Code(s): S32.10XA - Unspecified fracture of sacrum, initial encounter for closed fracture Category: Medical Code(s): S32.10XA - Unspecified fracture of sacrum, initial encounter for closed fracture (5) UTI (urinary tract infection) Current visit: Yes Status: Acute Qualifiers: Urinary tract infection type: acute cystitis Hematuria presence: without hematuria Qualified Code(s): N30.00 - Acute cystitis without hematuria Category: Medical Code(s): N39.0 - Urinary tract infection, site not specified (6) Bilateral pneumonia Current visit: No Status: Acute Category: Medical Code(s): J18.9 - Pneumonia, unspecified organism - Assessment and plan all Dx Assessment and Plan for all problems:: will await for cultures and continue current treatment.
--- NOTE | 2018-05-16 08:18 | Progress Note ---
<Winifred Mcdonnell - Last Filed: 05/16/18 08:12> Internal Medicine - PN: Subj *Date: 05/16/18 *Time: 07:40 Interval history: " Give me Morphine ". Patient states she is hurting in her pelvic area. She has received morphine every 4 hours for her pain. She denies nausea but does not feel like eating. She continues with her congested cough. She denies chest pain. Exam Vital signs and Labs for Last 24 Hours: Temp Pulse Resp BP Pulse Ox 97.8 F 98 H 18 137/60 92 L 05/16/18 04:00 05/16/18 04:00 05/16/18 04:00 05/16/18 04:00 05/16/18 04:00 I & O for Last 24 hours: Intake & Output 05/13/18 05/14/18 05/15/18 05/16/18 11:59 11:59 11:59 11:59 Intake Total 2319 / 2319 1301 / 1301 1830 / 1830 Output Total 401 / 401 650 / 650 Balance 2319 / 2319 900 / 900 1180 / 1180 Weight 108 lb 3 oz 108 lb 3 oz 122 lb 1 oz Microbiology Reports for the Last 24 Hours: Microbiology 05/13/18 20:44 Blood Blood Culture - Preliminary NO GROWTH AFTER 48 HOURS 05/13/18 20:44 Blood Blood Culture - Preliminary NO GROWTH AFTER 48 HOURS 05/13/18 20:44 Urine,Catheterized Urine Culture - Final NO GROWTH AFTER 48 HOURS - Constitutional no acute distress Comments: Asking for pain medicine - *Routine Respiratory Exam Comments: Lateral coarse rhonchi. Congested cough - *Routine Cardiovascular Exam Present: RRR - *Routine Abdominal Exam Present: soft. Absent: tenderness Comments: Slightly distended - *Routine Extremities Exam Absent: edema Assessment and Plan (1) Sepsis Current visit: Yes Status: Acute Qualifiers: Sepsis type: sepsis due to unspecified organism Qualified Code(s): A41.9 - Sepsis, unspecified organism Category: Medical Code(s): A41.9 - Sepsis, unspecified organism (2) Acute on chronic renal insufficiency Current visit: Yes Status: Acute Category: Medical Code(s): N28.9 - Disorder of kidney and ureter, unspecified; N18.9 - Chronic kidney disease, unspecified (3) Pelvic hematoma in female Current visit: Yes Status: Acute Category: Medical Code(s): N94.89 - Other specified conditions associated with female genital organs and menstrual cycle (4) Sacral fracture, closed Current visit: Yes Status: Acute Qualifiers: Encounter type: initial encounter Zone of sacrum fracture: unspecified portion of sacrum Qualified Code(s): S32.10XA - Unspecified fracture of sacrum, initial encounter for closed fracture Category: Medical Code(s): S32.10XA - Unspecified fracture of sacrum, initial encounter for closed fracture (5) UTI (urinary tract infection) Current visit: Yes Status: Acute Qualifiers: Urinary tract infection type: acute cystitis Hematuria presence: without hematuria Qualified Code(s): N30.00 - Acute cystitis without hematuria Category: Medical Code(s): N39.0 - Urinary tract infection, site not specified (6) Bilateral pneumonia Current visit: No Status: Acute Category: Medical Code(s): J18.9 - Pneumonia, unspecified organism - Assessment and plan all Dx Assessment and Plan for all problems:: Pain management. Continue with antibiotics; add romario knapp. <Ben Espinal - Last Filed: 05/18/18 10:24> Exam Vital signs and Labs for Last 24 Hours: Temp Pulse Resp BP Pulse Ox 98.7 F 110 H 16 101/52 L 95 05/18/18 08:00 05/18/18 08:48 05/18/18 08:48 05/18/18 08:00 05/18/18 08:48 Laboratory Results - last 24 hr 05/17/18 11:40: Vancomycin Trough 11.9 I & O for Last 24 hours: Intake & Output 05/15/18 05/16/18 05/17/18 05/18/18 11:59 11:59 11:59 11:59 Intake Total 1301 / 1301 1830 / 1830 1988 / 1988 1820 / 1820 Output Total 401 / 401 650 / 650 1000 / 1000 700 / 700 Balance 900 / 900 1180 / 1180 989 / 989 1120 / 1120 Weight 108 lb 3 oz 122 lb 1 oz 123 lb 8 oz Assessment and Plan (1) Sacral fracture, closed Current visit: Yes Status: Acute Qualifiers: Encounter type: initial encounter Zone of sacrum fracture: unspecified portion of sacrum Qualified Code(s): S32.10XA - Unspecified fracture of sacrum, initial encounter for closed fracture Category: Medical Code(s): S32.10XA - Unspecified fracture of sacrum, initial encounter for closed fracture (2) Pelvic hematoma in female Current visit: Yes Status: Acute Category: Medical Code(s): N94.89 - Other specified conditions associated with female genital organs and menstrual cycle (3) Uncontrolled pain Current visit: Yes Status: Acute Category: Medical Code(s): R52 - Pain, unspecified (4) Bilateral pneumonia Current visit: No Status: Acute Category: Medical Code(s): J18.9 - Pneumonia, unspecified organism (5) UTI (urinary tract infection) Current visit: Yes Status: Acute Qualifiers: Urinary tract infection type: acute cystitis Hematuria presence: without hematuria Qualified Code(s): N30.00 - Acute cystitis without hematuria Category: Medical Code(s): N39.0 - Urinary tract infection, site not specified (6) Acute on chronic renal insufficiency Current visit: Yes Status: Acute Category: Medical Code(s): N28.9 - Disorder of kidney and ureter, unspecified; N18.9 - Chronic kidney disease, unspecified (7) Knee pain, left Current visit: Yes Status: Acute Category: Medical Code(s): M25.562 - Pain in left knee - Assessment and plan all Dx Assessment and Plan for all problems:: Patient seen and examined. Concur with assessment and plan and will repeat CXR.
--- NOTE | 2018-05-16 15:54 | Consult Report ---
*Admission Date: 05/13/18 *Chief complaint: Pelvic hematoma *History of present illness: Patient is an 88-year-old patient. She was recently admitted to the hospital on 05/07 through 05/10 for pneumonia. She was evaluated in the emergency depart team for a plethora of symptoms. Her workup in the emergency department included CT scan which revealed a new displaced S1-S2 sacral fracture role with moderately large extraperitoneal hematoma resulting in some bladder displacement to the right. Surgical consultation was obtained. Review of Systems - Review of Systems Review of systems:: unable to obtain - *Neurologic Denies localized weakness, Denies seizure-like activity [facility] History Medical History: Reports:: Atherosclerotic Heart Disease, Chronic Obstructive Pulmonary Disease (COPD), Coronary Artery Disease, Urinary Tract Infection Denies:: Cancer, Diabetes Mellitus Type 1, Diabetes Mellitus Type 2, Internal Pacemaker, MRSA Other Medical History: Reports: Anemia, Cataracts, Other (pneumonia) Laterality Cases: Bilateral: Tonsillectomy Other Surgeries: Yes: Angioplasty, Cardiac Catheterization (Stenting of the mid left LAD 12/20/2010.). No: Pacemaker Amputation: No Fractures: No - *Social History Smoking Status: Former smoker Tobacco Type: cigarettes #Yrs smoked (if former smoker): 50 Alcohol Intake: never Occupational Status: retired Housing: assisted Household Members: other - Psychiatric History Expresses thoughts of harming self/others: None Suicide Plan Description: No Plan *Family Hx:: Unable to obtain, Cancer, Diabetes, Hypertension Meds Home Medications Medication Instructions Recorded Confirmed Type Aspirin 81 mg PO DAILY 10/23/17 05/14/18 History Carvedilol [Carvedilol 3.125mg Tab] 1.5625 mg PO DAILY 10/23/17 05/14/18 History Clopidogrel Bisulfate [Plavix 75mg 75 mg PO DAILY 10/23/17 05/14/18 History Tab] Mirtazapine [Remeron 15mg tablet] 15 mg PO HS 10/23/17 05/14/18 History Multivitamin with Minerals 1 each PO DAILY 10/23/17 05/14/18 History [Multivitamins with Minerals] Polyethylene Glycol 3350 [Miralax 17 gm PO DAILY 10/23/17 05/14/18 History 17gm Packet] Simvastatin [Zocor] 10 mg PO HS 10/23/17 05/14/18 History guaiFENesin [Robitussin 200mg/10mL 10 ml PO Q6HP PRN 10/23/17 05/13/18 History Syrup Udc] raNITIdine HCl [Ranitidine HCl] 150 mg PO BID 10/23/17 05/14/18 History Sennosides [Senna Laxative] 17.2 mg PO BIDP PRN 10/24/17 05/13/18 History Ipratropium/Albuterol Sulfate 3 ml IH TID 05/07/18 05/14/18 History [Duoneb 3mL neb] Donepezil HCl [Aricept 5mg] 5 mg PO HS 05/13/18 05/14/18 History Lutein 10 mg PO DAILY 05/13/18 05/14/18 History Sulfamethoxazole/Trimethoprim 1 each PO BID 05/13/18 05/14/18 History [Bactrim DS tablet] predniSONE [Prednisone 5mg 5 mg PO DAILY 05/13/18 05/14/18 History Tab] Carboxymethylcellulose Sodium 1 drop OP BID 05/14/18 05/14/18 History [Lubricating Plus] Cholecalciferol (Vitamin D3) 2,000 unit PO DAILY 05/14/18 05/14/18 History [Vitamin D3] Guaifenesin/Dextromethorphan 1 each PO BID 05/14/18 05/14/18 History [Mucinex Dm ER 600-30 mg Tablet] Allergies Allergy/AdvReac Type Severity Reaction Status Date / Time Penicillins Allergy Unknown Verified 05/13/18 20:40 streptomycin Allergy Unknown Verified 05/13/18 20:40 Exam Vital signs and Labs for Last 24 Hours: Temp Pulse Resp BP Pulse Ox 97.8 F 98 H 18 137/60 92 L 05/16/18 04:00 05/16/18 04:00 05/16/18 04:00 05/16/18 04:00 05/16/18 08:00 I & O for Last 24 hours: Intake & Output 05/14/18 05/15/18 05/16/18 05/17/18 11:59 11:59 11:59 11:59 Intake Total 2319 / 2319 1301 / 1301 1830 / 1830 Output Total 401 / 401 650 / 650 Balance 2319 / 2319 900 / 900 1180 / 1180 Weight 108 lb 3 oz 108 lb 3 oz 122 lb 1 oz Microbiology Reports for the Last 24 Hours: Microbiology 05/13/18 20:44 Blood Blood Culture - Preliminary NO GROWTH AFTER 48 HOURS 05/13/18 20:44 Blood Blood Culture - Preliminary NO GROWTH AFTER 48 HOURS 05/13/18 20:44 Urine,Catheterized Urine Culture - Final NO GROWTH AFTER 48 HOURS - Constitutional Comments: Patient is uncomfortable. - *Routine Abdominal Exam Present: soft. Absent: tenderness, distended Results - Labs 05/15/18 06:23 05/14/18 06:30 Assessment and Plan (1) Sepsis Current visit: Yes Status: Acute Qualifiers: Sepsis type: sepsis due to unspecified organism Qualified Code(s): A41.9 - Sepsis, unspecified organism Category: Medical Code(s): A41.9 - Sepsis, unspecified organism (2) Acute on chronic renal insufficiency Current visit: Yes Status: Acute Category: Medical Code(s): N28.9 - Disorder of kidney and ureter, unspecified; N18.9 - Chronic kidney disease, unspecified (3) Pelvic hematoma in female Current visit: Yes Status: Acute Category: Medical Code(s): N94.89 - Other specified conditions associated with female genital organs and menstrual cycle (4) Sacral fracture, closed Current visit: Yes Status: Acute Qualifiers: Encounter type: initial encounter Zone of sacrum fracture: unspecified portion of sacrum Qualified Code(s): S32.10XA - Unspecified fracture of sacrum, initial encounter for closed fracture Category: Medical Code(s): S32.10XA - Unspecified fracture of sacrum, initial encounter for closed fracture (5) UTI (urinary tract infection) Current visit: Yes Status: Acute Qualifiers: Urinary tract infection type: acute cystitis Hematuria presence: without hematuria Qualified Code(s): N30.00 - Acute cystitis without hematuria Category: Medical Code(s): N39.0 - Urinary tract infection, site not specified (6) Bilateral pneumonia Current visit: No Status: Acute Category: Medical Code(s): J18.9 - Pneumonia, unspecified organism - Assessment and plan all Dx Assessment and Plan for all problems:: Hematoma appears to be from new sacral fracture. No general surgical recommendations or intervention at this time.
--- NOTE | 2018-05-17 07:45 | Progress Note ---
<Winifred Mcdonnell - Last Filed: 05/17/18 07:42> Internal Medicine - PN: Subj *Date: 05/17/18 *Time: 07:30 Interval history: Patient states she is better today. She continues to have pain around her rectum but seems to be better. She has required less pain medicine. She denies chest pain and shortness of breath. She still has a congested cough. She would like to stay until she is better before going back to [facility]. Per nursing: Patient did drink boost last night. Says she has a pure wick urinary catheter in place with a good urinary output. Dr. Baker note reviewed. Chest x-ray repeated yesterday with some improvement, blood and urine cultures are negative thus far. Exam Vital signs and Labs for Last 24 Hours: Temp Pulse Resp BP Pulse Ox 97.4 F L 94 H 22 132/70 93 L 05/17/18 04:00 05/17/18 05:54 05/17/18 04:00 05/17/18 04:00 05/17/18 05:54 I & O for Last 24 hours: Intake & Output 05/14/18 05/15/18 05/16/18 05/17/18 11:59 11:59 11:59 11:59 Intake Total 2319 / 2319 1301 / 1301 1830 / 1830 1988 Output Total 401 / 401 650 / 650 1000 / 1000 Balance 2319 / 2319 900 / 900 1180 / 1180 989 / 989 Weight 108 lb 3 oz 108 lb 3 oz 122 lb 1 oz Radiology Reports for the Last 24 Hours: 05/16/2018 repeat chest x-ray IMPRESSION: Chronic changes with slight increased density in both lung bases which may be related to atelectatic changes with small effusions. The infiltrate in right upper lobe has improved - Constitutional no acute distress Comments: Awakened from sleep. Appears comfortable. Congested cough. Very conversant this morning and speech is very clear - *Routine Respiratory Exam Comments: Bilateral coarse rhonchi and coarse cough - *Routine Cardiovascular Exam Present: RRR - *Routine Abdominal Exam Present: soft, normoactive bowel sounds. Absent: tenderness - *Routine Extremities Exam Present: edema (Some bilateral leg and foot edema) - *Routine Neurological Exam Present: alert, oriented X3 Speech is clear. She is conversant today. Assessment and Plan (1) Sepsis Current visit: Yes Status: Acute Qualifiers: Sepsis type: sepsis due to unspecified organism Qualified Code(s): A41.9 - Sepsis, unspecified organism Category: Medical Code(s): A41.9 - Sepsis, unspecified organism (2) Acute on chronic renal insufficiency Current visit: Yes Status: Acute Category: Medical Code(s): N28.9 - Disorder of kidney and ureter, unspecified; N18.9 - Chronic kidney disease, unspecified (3) Pelvic hematoma in female Current visit: Yes Status: Acute Category: Medical Code(s): N94.89 - Other specified conditions associated with female genital organs and menstrual cycle (4) Sacral fracture, closed Current visit: Yes Status: Acute Qualifiers: Encounter type: initial encounter Zone of sacrum fracture: unspecified portion of sacrum Qualified Code(s): S32.10XA - Unspecified fracture of sacrum, initial encounter for closed fracture Category: Medical Code(s): S32.10XA - Unspecified fracture of sacrum, initial encounter for closed fracture (5) UTI (urinary tract infection) Current visit: Yes Status: Acute Qualifiers: Urinary tract infection type: acute cystitis Hematuria presence: without hematuria Qualified Code(s): N30.00 - Acute cystitis without hematuria Category: Medical Code(s): N39.0 - Urinary tract infection, site not specified (6) Bilateral pneumonia Current visit: No Status: Acute Category: Medical Code(s): J18.9 - Pneumonia, unspecified organism - Assessment and plan all Dx Assessment and Plan for all problems:: Continue with antibiotics and duo nebs. Pain management. Will repeat labs this morning. <Ben Espinal - Last Filed: 05/18/18 10:06> Exam Vital signs and Labs for Last 24 Hours: Temp Pulse Resp BP Pulse Ox 98.7 F 110 H 16 101/52 L 95 05/18/18 08:00 05/18/18 08:48 05/18/18 08:48 05/18/18 08:00 05/18/18 08:48 Laboratory Results - last 24 hr 05/17/18 11:40: Vancomycin Trough 11.9 I & O for Last 24 hours: Intake & Output 05/15/18 05/16/18 05/17/18 05/18/18 11:59 11:59 11:59 11:59 Intake Total 1301 / 1301 1830 / 1830 1988 / 1988 1820 / 1820 Output Total 401 / 401 650 / 650 1000 / 1000 700 / 700 Balance 900 / 900 1180 / 1180 989 / 989 1120 / 1120 Weight 108 lb 3 oz 122 lb 1 oz 123 lb 8 oz Assessment and Plan (1) Sacral fracture, closed Current visit: Yes Status: Acute Qualifiers: Encounter type: initial encounter Zone of sacrum fracture: unspecified portion of sacrum Qualified Code(s): S32.10XA - Unspecified fracture of sacrum, initial encounter for closed fracture Category: Medical Code(s): S32.10XA - Unspecified fracture of sacrum, initial encounter for closed fracture (2) Pelvic hematoma in female Current visit: Yes Status: Acute Category: Medical Code(s): N94.89 - Other specified conditions associated with female genital organs and menstrual cycle (3) Uncontrolled pain Current visit: Yes Status: Acute Category: Medical Code(s): R52 - Pain, unspecified (4) Bilateral pneumonia Current visit: No Status: Acute Category: Medical Code(s): J18.9 - Pneumonia, unspecified organism (5) UTI (urinary tract infection) Current visit: Yes Status: Acute Qualifiers: Urinary tract infection type: acute cystitis Hematuria presence: without hematuria Qualified Code(s): N30.00 - Acute cystitis without hematuria Category: Medical Code(s): N39.0 - Urinary tract infection, site not specified (6) Acute on chronic renal insufficiency Current visit: Yes Status: Acute Category: Medical Code(s): N28.9 - Disorder of kidney and ureter, unspecified; N18.9 - Chronic kidney disease, unspecified (7) Knee pain, left Current visit: Yes Status: Acute Category: Medical Code(s): M25.562 - Pain in left knee - Assessment and plan all Dx Assessment and Plan for all problems:: Patient seen and examined this AM. CXR improved although still with congested cough. Pain management is still an issue. Will start Percocet and try to wean off the IV morphine.
[2018-05-17 08:13] LABS: Basophils % 0.1 % (0.1-2.0); Eosinophils # 0.4 K/mm3 (0.0-0.4); Eosinophils % 2.9 % (0.1-12.0); Hematocrit 31.7 % (37.0-47.0); Hemoglobin 9.9 g/dL (12.2-16.2); Lymphocytes # 1.4 K/mm3 (0.7-4.5); Lymphocytes % 10.2 K/mm3 (10-50); Mean Corpuscular HGB Conc 31.3 g/dL (31.8-35.4); Mean Corpuscular Hemoglobin 29.7 pg (27.0-31.2); Mean Corpuscular Volume 95.1 fl (81-99); Mean Platelet Volume 7.8 fl (7.4-10.4); Monocytes # 0.5 K/mm3 (0.1-1.0); Monocytes % 3.5 % (1.7-9.3); Neutrophils # 11.6 K/mm3 (1.8-7.8); Neutrophils % 83.3 % (37.0-80.0); Platelet Count 248 K/mm3 (142-424); Red Blood Count 3.33 M/mm3 (4.20-5.40); Red Cell Distribution Width 18.9 % (11.5-17.5)
[2018-05-17 08:22] LABS: Anion Gap 11.2 mEq/L (5-15); Calcium 7.9 mg/dL (8.5-10.1); Potassium 4.2 mmoL/L (3.5-5.1)
--- NOTE | 2018-05-17 13:18 | Pharmacy Consult Notes ---
- Pharmacy Consult Date: 05/17/18 Time: 13:15 Referring provider: DR. MISHRA Reason for Consult:: VANCOMYCIN TROUGH LEVEL Allergies and ADEs:: Allergies Allergy/AdvReac Type Severity Reaction Status Date / Time Penicillins Allergy Unknown Verified 05/13/18 20:40 streptomycin Allergy Unknown Verified 05/13/18 20:40 Home Medications:: Home Medications Medication Instructions Recorded Confirmed Type Aspirin 81 mg PO DAILY 10/23/17 05/14/18 History Carvedilol [Carvedilol 3.125mg Tab] 1.5625 mg PO DAILY 10/23/17 05/14/18 History Clopidogrel Bisulfate [Plavix 75mg 75 mg PO DAILY 10/23/17 05/14/18 History Tab] Mirtazapine [Remeron 15mg tablet] 15 mg PO HS 10/23/17 05/14/18 History Multivitamin with Minerals 1 each PO DAILY 10/23/17 05/14/18 History [Multivitamins with Minerals] Polyethylene Glycol 3350 [Miralax 17 gm PO DAILY 10/23/17 05/14/18 History 17gm Packet] Simvastatin [Zocor] 10 mg PO HS 10/23/17 05/14/18 History guaiFENesin [Robitussin 200mg/10mL 10 ml PO Q6HP PRN 10/23/17 05/13/18 History Syrup Udc] raNITIdine HCl [Ranitidine HCl] 150 mg PO BID 10/23/17 05/14/18 History Sennosides [Senna Laxative] 17.2 mg PO BIDP PRN 10/24/17 05/13/18 History Ipratropium/Albuterol Sulfate 3 ml IH TID 05/07/18 05/14/18 History [Duoneb 3mL neb] Donepezil HCl [Aricept 5mg] 5 mg PO HS 05/13/18 05/14/18 History Lutein 10 mg PO DAILY 05/13/18 05/14/18 History Sulfamethoxazole/Trimethoprim 1 each PO BID 05/13/18 05/14/18 History [Bactrim DS tablet] predniSONE [Prednisone 5mg 5 mg PO DAILY 05/13/18 05/14/18 History Tab] Carboxymethylcellulose Sodium 1 drop OP BID 05/14/18 05/14/18 History [Lubricating Plus] Cholecalciferol (Vitamin D3) 2,000 unit PO DAILY 05/14/18 05/14/18 History [Vitamin D3] Guaifenesin/Dextromethorphan 1 each PO BID 05/14/18 05/14/18 History [Mucinex Dm ER 600-30 mg Tablet] Height: 1.65 m Weight: 55.367 kg Laboratory Results:: Laboratory Results - last 24 hr 05/17/18 08:03: WBC 14.0 H, RBC 3.33 L, Hgb 9.9 L, Hct 31.7 L, MCV 95.1, MCH 29.7, MCHC 31.3 L, RDW 18.9 H, Plt Count 248, MPV 7.8, Neut % (Auto) 83.3 H, Lymph % (Auto) 10.2, [place] % (Auto) 3.5, Eos % (Auto) 2.9, Baso % (Auto) 0.1, Neut # (Auto) 11.6 H, Lymph # (Auto) 1.4, [place] # (Auto) 0.5, Eos # (Auto) 0.4, Baso # (Auto) 0.0 05/17/18 08:03: Sodium 144, Potassium 4.2, Chloride 116 H, Carbon Dioxide 21, Anion Gap 11.2, BUN 19 H, Creatinine 0.83, Estimated Creat Clear 34, Estimated GFR 65, Est GFR ( Amer) 79, Glucose 103, Calcium 7.9 L 05/17/18 11:40: Vancomycin Trough 11.9 Medical History: Reports:: Atherosclerotic Heart Disease, Chronic Obstructive Pulmonary Disease (COPD), Coronary Artery Disease, Urinary Tract Infection Denies:: Cancer, Diabetes Mellitus Type 1, Diabetes Mellitus Type 2, Internal Pacemaker, MRSA Assessment and Plan (1) Sepsis Current visit: Yes Status: Acute Qualifiers: Sepsis type: sepsis due to unspecified organism Qualified Code(s): A41.9 - Sepsis, unspecified organism Category: Medical Code(s): A41.9 - Sepsis, unspecified organism (2) Acute on chronic renal insufficiency Current visit: Yes Status: Acute Category: Medical Code(s): N28.9 - Disorder of kidney and ureter, unspecified; N18.9 - Chronic kidney disease, unspecified (3) Pelvic hematoma in female Current visit: Yes Status: Acute Category: Medical Code(s): N94.89 - Other specified conditions associated with female genital organs and menstrual cycle (4) Sacral fracture, closed Current visit: Yes Status: Acute Qualifiers: Encounter type: initial encounter Zone of sacrum fracture: unspecified portion of sacrum Qualified Code(s): S32.10XA - Unspecified fracture of sacrum, initial encounter for closed fracture Category: Medical Code(s): S32.10XA - Unspecified fracture of sacrum, initial encounter for closed fracture (5) UTI (urinary tract infection) Current visit: Yes Status: Acute Qualifiers: Urinary tract infection type: acute cystitis Hematuria presence: without hematuria Qualified Code(s): N30.00 - Acute cystitis without hematuria Category: Medical Code(s): N39.0 - Urinary tract infection, site not specified (6) Bilateral pneumonia Current visit: No Status: Acute Category: Medical Code(s): J18.9 - Pneumonia, unspecified organism - Assessment and plan all Dx Assessment and Plan for all problems:: BASED ON PATIENT FACTORS AND VANCOMYCIN TROUGH LEVEL, RECOMMEND CHANGING INTERVAL. RECOMMEND VANCOMYCIN 750 MG IV Q24H. PATIENT'S SRCR HAS DECREASED FROM 1.30 TO 0.83. PHARMACY WILL CONTINUE TO MONITOR DAILY AND ADJUST APPROPRIATE.
--- NOTE | 2018-05-18 08:03 | Progress Note ---
<Marcie Hawk - Last Filed: 05/18/18 07:59> Internal Medicine - PN: Subj *Date: 05/18/18 *Time: 07:59 Interval history: Patient states she does not feel well this morning. She states her knee and her hip hurt and she needs pain medication. She still has a very congested cough. She states she did not rest well. She did eat a minimal amount of breakfast. Exam Vital signs and Labs for Last 24 Hours: Temp Pulse Resp BP Pulse Ox 97.7 F 91 H 16 152/78 H 98 05/18/18 04:00 05/18/18 05:58 05/18/18 04:00 05/18/18 04:00 05/18/18 05:58 Laboratory Results - last 24 hr 05/17/18 08:03: WBC 14.0 H, RBC 3.33 L, Hgb 9.9 L, Hct 31.7 L, MCV 95.1, MCH 29.7, MCHC 31.3 L, RDW 18.9 H, Plt Count 248, MPV 7.8, Neut % (Auto) 83.3 H, Lymph % (Auto) 10.2, [place] % (Auto) 3.5, Eos % (Auto) 2.9, Baso % (Auto) 0.1, Neut # (Auto) 11.6 H, Lymph # (Auto) 1.4, [place] # (Auto) 0.5, Eos # (Auto) 0.4, Baso # (Auto) 0.0 05/17/18 08:03: Sodium 144, Potassium 4.2, Chloride 116 H, Carbon Dioxide 21, Anion Gap 11.2, BUN 19 H, Creatinine 0.83, Estimated Creat Clear 34, Estimated GFR 65, Est GFR ( Amer) 79, Glucose 103, Calcium 7.9 L 05/17/18 11:40: Vancomycin Trough 11.9 I & O for Last 24 hours: Intake & Output 05/15/18 05/16/18 05/17/18 05/18/18 11:59 11:59 11:59 11:59 Intake Total 1301 / 1301 1830 / 1830 1988 / 1988 350 / 350 Output Total 401 / 401 650 / 650 1000 / 1000 700 / 700 Balance 900 / 900 1180 / 1180 989 / 989 -350 / -350 Weight 108 lb 3 oz 122 lb 1 oz 123 lb 8 oz - Constitutional Comments: coughing - *Routine Respiratory Exam Present: CTA bilaterally, rhonchi - *Routine Cardiovascular Exam Present: RRR - *Routine Abdominal Exam Present: soft, normoactive bowel sounds. Absent: tenderness - *Routine Extremities Exam Present: edema (trace bilaterally). Absent: cyanosis, clubbing Comments: left knee diffusely ttp, hurts to move it at all Assessment and Plan (1) Sepsis Current visit: Yes Status: Acute Qualifiers: Sepsis type: sepsis due to unspecified organism Qualified Code(s): A41.9 - Sepsis, unspecified organism Category: Medical Code(s): A41.9 - Sepsis, unspecified organism (2) Acute on chronic renal insufficiency Current visit: Yes Status: Acute Category: Medical Code(s): N28.9 - Disorder of kidney and ureter, unspecified; N18.9 - Chronic kidney disease, unspecified (3) Pelvic hematoma in female Current visit: Yes Status: Acute Category: Medical Code(s): N94.89 - Other specified conditions associated with female genital organs and menstrual cycle (4) Sacral fracture, closed Current visit: Yes Status: Acute Qualifiers: Encounter type: initial encounter Zone of sacrum fracture: unspecified portion of sacrum Qualified Code(s): S32.10XA - Unspecified fracture of sacrum, initial encounter for closed fracture Category: Medical Code(s): S32.10XA - Unspecified fracture of sacrum, initial encounter for closed fracture (5) UTI (urinary tract infection) Current visit: Yes Status: Acute Qualifiers: Urinary tract infection type: acute cystitis Hematuria presence: without hematuria Qualified Code(s): N30.00 - Acute cystitis without hematuria Category: Medical Code(s): N39.0 - Urinary tract infection, site not specified (6) Bilateral pneumonia Current visit: No Status: Acute Category: Medical Code(s): J18.9 - Pneumonia, unspecified organism (7) Knee pain, left Current visit: Yes Status: Acute Category: Medical Code(s): M25.562 - Pain in left knee - Assessment and plan all Dx Assessment and Plan for all problems:: Will discuss further care with Dr. Espinal. Pt has had no apparent injury of the left knee. May need an x-ray. <TeddyBen Todd - Last Filed: 05/18/18 09:41> Exam Vital signs and Labs for Last 24 Hours: Temp Pulse Resp BP Pulse Ox 98.7 F 110 H 16 101/52 L 95 05/18/18 08:00 05/18/18 08:48 05/18/18 08:48 05/18/18 08:00 05/18/18 08:48 Laboratory Results - last 24 hr 05/17/18 11:40: Vancomycin Trough 11.9 I & O for Last 24 hours: Intake & Output 05/15/18 05/16/18 05/17/18 05/18/18 11:59 11:59 11:59 11:59 Intake Total 1301 / 1301 1830 / 1830 1988 1820 / 1820 Output Total 401 / 401 650 / 650 1000 / 1000 700 / 700 Balance 900 / 900 1180 / 1180 989 / 989 1120 / 1120 Weight 108 lb 3 oz 122 lb 1 oz 123 lb 8 oz Assessment and Plan (1) Sacral fracture, closed Current visit: Yes Status: Acute Qualifiers: Encounter type: initial encounter Zone of sacrum fracture: unspecified portion of sacrum Qualified Code(s): S32.10XA - Unspecified fracture of sacrum, initial encounter for closed fracture Category: Medical Code(s): S32.10XA - Unspecified fracture of sacrum, initial encounter for closed fracture (2) Pelvic hematoma in female Current visit: Yes Status: Acute Category: Medical Code(s): N94.89 - Other specified conditions associated with female genital organs and menstrual cycle (3) Uncontrolled pain Current visit: Yes Status: Acute Category: Medical Code(s): R52 - Pain, unspecified (4) Bilateral pneumonia Current visit: No Status: Acute Category: Medical Code(s): J18.9 - Pneumonia, unspecified organism (5) UTI (urinary tract infection) Current visit: Yes Status: Acute Qualifiers: Urinary tract infection type: acute cystitis Hematuria presence: without hematuria Qualified Code(s): N30.00 - Acute cystitis without hematuria Category: Medical Code(s): N39.0 - Urinary tract infection, site not specified (6) Acute on chronic renal insufficiency Current visit: Yes Status: Acute Category: Medical Code(s): N28.9 - Disorder of kidney and ureter, unspecified; N18.9 - Chronic kidney disease, unspecified (7) Knee pain, left Current visit: Yes Status: Acute Category: Medical Code(s): M25.562 - Pain in left knee - Assessment and plan all Dx Assessment and Plan for all problems:: SHe is resting comfortably this morning. No c/o pain at present but has been requiring both IV Morphine and Percocet to manage her pain. Will add MS Contin and stop IV morphine. She with mostly nonproductive congested cough. CXR showing improvement.
--- NOTE | 2018-05-18 10:55 | Progress Note ---
Internal Medicine - PN: Subj *Date: 05/18/18 *Time: 10:55 Exam Vital signs and Labs for Last 24 Hours: Temp Pulse Resp BP Pulse Ox 98.7 F 110 H 16 101/52 L 95 05/18/18 08:00 05/18/18 08:48 05/18/18 08:48 05/18/18 08:00 05/18/18 08:48 Laboratory Results - last 24 hr 05/17/18 11:40: Vancomycin Trough 11.9 I & O for Last 24 hours: Intake & Output 05/15/18 05/16/18 05/17/18 05/18/18 23:59 23:59 23:59 23:59 Intake Total 1061 / 1061 2819 / 2819 1350 / 1350 1470 / 1470 Output Total 650 / 650 1100 / 1100 600 / 600 Balance 1060 / 1060 2169 / 2169 250 / 250 870 / 870 Weight 49.073 kg 55.367 kg 55.367 kg 56.019 kg Assessment and Plan (1) Sacral fracture, closed Current visit: Yes Status: Acute Qualifiers: Encounter type: initial encounter Zone of sacrum fracture: unspecified portion of sacrum Qualified Code(s): S32.10XA - Unspecified fracture of sacrum, initial encounter for closed fracture Category: Medical Code(s): S32.10XA - Unspecified fracture of sacrum, initial encounter for closed fracture (2) Pelvic hematoma in female Current visit: Yes Status: Acute Category: Medical Code(s): N94.89 - Other specified conditions associated with female genital organs and menstrual cycle (3) Uncontrolled pain Current visit: Yes Status: Acute Category: Medical Code(s): R52 - Pain, unspecified (4) Bilateral pneumonia Current visit: No Status: Acute Category: Medical Code(s): J18.9 - Pneumonia, unspecified organism (5) UTI (urinary tract infection) Current visit: Yes Status: Acute Qualifiers: Urinary tract infection type: acute cystitis Hematuria presence: without hematuria Qualified Code(s): N30.00 - Acute cystitis without hematuria Category: Medical Code(s): N39.0 - Urinary tract infection, site not specified (6) Acute on chronic renal insufficiency Current visit: Yes Status: Acute Category: Medical Code(s): N28.9 - Dis order of kidney and ureter, unspecified; N18.9 - Chronic kidney disease, unspecified (7) Knee pain, left Current visit: Yes Status: Acute Category: Medical Code(s): M25.562 - Pain in left knee The patient's infection will respond to the chosen ABx?: Yes Is the patient receiving the right drug, dose, and route?: Yes Could a more targeted ABx be ordered?: No
--- NOTE | 2018-05-19 08:10 | Progress Note ---
<Marcie Hawk - Last Filed: 05/19/18 08:08> Internal Medicine - PN: Subj *Date: 05/19/18 *Time: 08:08 Interval history: Patient is sleeping this morning and does not wake up with exam. She has eaten a small amount of breakfast. Exam Vital signs and Labs for Last 24 Hours: Temp Pulse Resp BP Pulse Ox 97.6 F 82 16 91/46 L 93 L 05/19/18 04:00 05/19/18 06:29 05/19/18 04:00 05/19/18 04:00 05/19/18 06:29 I & O for Last 24 hours: Intake & Output 05/16/18 05/17/18 05/18/18 05/19/18 11:59 11:59 11:59 11:59 Intake Total 1830 / 1830 1988 / 1988 1820 / 1820 1080 / 1080 Output Total 650 / 650 1000 / 1000 700 / 700 900 / 900 Balance 1180 / 1180 989 / 989 1120 / 1120 180 / 180 Weight 122 lb 1 oz 123 lb 8 oz Microbiology Reports for the Last 24 Hours: Microbiology 05/13/18 20:44 Blood Blood Culture - Final NO GROWTH AFTER 5 DAYS 05/13/18 20:44 Blood Blood Culture - Final NO GROWTH AFTER 5 DAYS - Constitutional no acute distress Comments: sleeping - *Routine Respiratory Exam Present: rhonchi (bilaterally) - *Routine Cardiovascular Exam Present: RRR - *Routine Abdominal Exam Present: soft, normoactive bowel sounds. Absent: tenderness - *Routine Extremities Exam Absent: cyanosis, clubbing, edema Assessment and Plan (1) Sacral fracture, closed Current visit: Yes Status: Acute Qualifiers: Encounter type: initial encounter Zone of sacrum fracture: unspecified portion of sacrum Qualified Code(s): S32.10XA - Unspecified fracture of sacrum, initial encounter for closed fracture Category: Medical Code(s): S32.10XA - Unspecified fracture of sacrum, initial encounter for closed fracture (2) Pelvic hematoma in female Current visit: Yes Status: Acute Category: Medical Code(s): N94.89 - Other specified conditions associated with female genital organs and menstrual cycle (3) Uncontrolled pain Current visit: Yes Status: Acute Category: Medical Code(s): R52 - Pain, unspecified (4) Bilateral pneumonia Current visit: No Status: Acute Category: Medical Code(s): J18.9 - Pneumonia, unspecified organism (5) UTI (urinary tract infection) Current visit: Yes Status: Acute Qualifiers: Urinary tract infection type: acute cystitis Hematuria presence: without hematuria Qualified Code(s): N30.00 - Acute cystitis without hematuria Category: Medical Code(s): N39.0 - Urinary tract infection, site not specified (6) Acute on chronic renal insufficiency Current visit: Yes Status: Acute Category: Medical Code(s): N28.9 - Disorder of kidney and ureter, unspecified; N18.9 - Chronic kidney disease, unspecified (7) Knee pain, left Current visit: Yes Status: Acute Category: Medical Code(s): M25.562 - Pain in left knee (8) Sepsis Current visit: Yes Status: Acute Category: Medical Code(s): A41.9 - Sepsis, unspecified organism - Assessment and plan all Dx Assessment and Plan for all problems:: Will discuss further care with Dr. Espinal. <Ben Espinal - Last Filed: 05/19/18 17:18> Exam Vital signs and Labs for Last 24 Hours: Temp Pulse Resp BP Pulse Ox 97.9 F 96 H 20 110/57 L 95 05/19/18 15:56 05/19/18 15:56 05/19/18 15:56 05/19/18 15:56 05/19/18 15:56 Laboratory Results - last 24 hr 05/19/18 12:36: Sodium 144, Potassium 4.0, Chloride 112 H, Carbon Dioxide 24, Anion Gap 12.0, BUN 18, Creatinine 1.02 D, Estimated Creat Clear 34, Estimated GFR 51 L, Est GFR ( Amer) 62 D, Glucose 88, Calcium 8.2 L, Vancomycin Trough 18.2 I & O for Last 24 hours: Intake & Output 05/17/18 05/18/18 05/19/18 05/20/18 11:59 11:59 11:59 11:59 Intake Total 1988 / 1988 1820 / 1820 1200 / 1200 120 / 120 Output Total 1000 / 1000 700 / 700 900 / 900 150 / 150 Balance 989 / 989 1120 / 1120 300 / 300 -30 / -30 Weight 123 lb 8 oz 123 lb 8 oz Microbiology Reports for the Last 24 Hours: Microbiology 05/13/18 20:44 Blood Blood Culture - Final NO GROWTH AFTER 5 DAYS 05/13/18 20:44 Blood Blood Culture - Final NO GROWTH AFTER 5 DAYS Assessment and Plan (1) Sacral fracture, closed Current visit: Yes Status: Acute Qualifiers: Encounter type: initial encounter Zone of sacrum fracture: unspecified portion of sacrum Qualified Code(s): S32.10XA - Unspecified fracture of sacrum, initial encounter for closed fracture Category: Medical Code(s): S32.10XA - Unspecified fracture of sacrum, initial encounter for closed fracture (2) Pelvic hematoma in female Current visit: Yes Status: Acute Category: Medical Code(s): N94.89 - Other specified conditions associated with female genital organs and menstrual cycle (3) Uncontrolled pain Current visit: Yes Status: Acute Category: Medical Code(s): R52 - Pain, unspecified (4) Bilateral pneumonia Current visit: No Status: Acute Category: Medical Code(s): J18.9 - Pneumonia, unspecified organism (5) UTI (urinary tract infection) Current visit: Yes Status: Acute Qualifiers: Urinary tract infection type: acute cystitis Hematuria presence: without hematuria Qualified Code(s): N30.00 - Acute cystitis without hematuria Category: Medical Code(s): N39.0 - Urinary tract infection, site not specified (6) Acute on chronic renal insufficiency Current visit: Yes Status: Acute Category: Medical Code(s): N28.9 - Disorder of kidney and ureter, unspecified; N18.9 - Chronic kidney disease, unspecified (7) Knee pain, left Current visit: Yes Status: Acute Category: Medical Code(s): M25.562 - Pain in left knee (8) Sepsis Current visit: Yes Status: Acute Category: Medical Code(s): A41.9 - Sepsis, unspecified organism - Assessment and plan all Dx Assessment and Plan for all problems:: Patient seen and examined. Pain seems fairly well managed on current oral regimen. May be able to return to [facility] later today. Needs PICC line for additional Vancomycin
[2018-05-19 13:02] LABS: Calcium 8.2 mg/dL (8.5-10.1); Vancomycin,Trough 18.2 mcg/ml (10.0-20.0)
--- NOTE | 2018-05-19 14:40 | Discharge Summary ---
General - General Admission date:: 05/13/18 <Ben Espinal - 05/23/18 08:19> 05/13/18 <Marcie Hawk - 05/19/18 14:54> Discharge date: 05/19/18 <Marcie Hawk - 05/19/18 14:54> HPI HPI: Patient presented to ED with some nausea, vomiting and mild diarrhea that was ongoing for a few days. He was also having mild fever and chills with some abdominal pain. She was also having some altered mental status and history was limited secondary to this. <Marcie Hawk - 05/19/18 14:54> Hospital Course Hospital Course: The patient had a CT scan showing a moderate to large amount of extraperitoneal hematoma surrounding the urinary bladder greatest along the left anterolateral left lateral aspect of the bladder with a shift of the bladder toward the right. There was also a minimally displaced S1-S2 fracture which was not present on previous exam as well as bilateral staghorn renal calculi most extensive in the lower pole the right kidney and in the upper and mid aspect of the left kidney. A 1 cm stone was present in the proximal left ureter and a 1.7 cm hypoattenuation was located along the upper pole the right kidney nonspecific and could be related to a cyst or renal neoplasm. Radiology recommended an U/S for further evaluation. Her CXR showed a right sided pneumonia. The patient met the criteria for sepsis and was started on broad spectrum abx secondary to acute complicated cystitis and pneumonia due to an uncertain organism. Her H&H was low 6.6 therefore she was transfused with 2 units of PRBCs and this improved. An ultrasound was ordered of the bladder and showed a moderately distended bladder and a large amorphous area compatible with large hematoma noted along the anterior left aspect of pelvis measuring up to 12 cm in length times over 5 AP thickness. She also had a renal U/S showing bilateral cortical thinning, a staghorn calculus in the right kidney and no obstructive uropathy. There were bilateral benign appearing renal cysts. The patient c/o pain in her pelvic area and was started on morphine. She was started on duonebs for her pneumonia. Surgery was consulted and felt she had the hematoma secondary to the new sacral fracture. No general surgical recommendations or intervention were made. She was started on percocet, but her pain continued even with the p ercocet and morphine. She was therefore started on MS Contin and the IV morphine was discontinued. She had a repeat CXR showing chronic changes with slight increased density in both lung bases. The infiltrate in right upper lobe had improved. Blood and urine cultures all came back with no growth. A PICC line was placed and she was stable to be discharged back to the intermediate on vancomycin and ceftin for the next 8 days as well as nebs and pain medication. <Marcie Hawk - 05/19/18 14:54> Objective Vital signs: Temp Pulse Resp BP Pulse Ox 97.9 F 96 H 20 110/57 L 95 05/19/18 15:56 05/19/18 15:56 05/19/18 15:56 05/19/18 15:56 05/19/18 15:56 <TeddyBen Perez - 05/23/18 08:19> Temp Pulse Resp BP Pulse Ox 97.8 F 78 22 129/62 93 L 05/19/18 08:00 05/19/18 11:04 05/19/18 08:00 05/19/18 08:00 05/19/18 08:00 <Marcie Hawk - 05/19/18 14:54> Narrative: - *Routine HEENT Exam Head: Present: normocephalic Eye: Present: EOMI ENT: Present: mucous membranes moist - *Routine Neck Exam Present: supple - *Routine Respiratory Exam Present: CTA bilaterally. Absent: accessory muscle use - *Routine Cardiovascular Exam Present: RRR - *Routine Abdominal Exam Present: soft, normoactive bowel sounds, tenderness (lower abdominal pain that is diffuse) - *Routine Extremities Exam Present: normal capillary refill <Marcie Hawk - 05/19/18 14:54> Results Labs on day of discharge: Labs from last 24 hours 05/19/18 12:36 Sodium 144 Potassium 4.0 Chloride 112 H Carbon Dioxide 24 Anion Gap 12.0 BUN 18 Creatinine 1.02 D Estimated Creat Clear 34 Estimated GFR 51 L Est GFR ( Amer) 62 D Glucose 88 Calcium 8.2 L Vancomycin Trough 18.2 <Marcie Hawk - 05/19/18 14:54> DS: Diagnosis - Discharge Diagnosis (1) Sacral fracture, closed Status: Acute (2) Pelvic hematoma in female Status: Acute (3) Uncontrolled pain Status: Acute (4) Bilateral pneumonia Status: Acute (5) UTI (urinary tract infection) Status: Acute (6) Acute on chronic renal insufficiency Status: Acute (7) Knee pain, left Status: Acute (8) Sepsis Status: Acute <Marcie Hawk - 05/19/18 14:08> (1) Sacral fracture, closed Status: Acute (2) Pelvic hematoma in female Status: Acute (3) Uncontrolled pain Status: Acute (4) Bilateral pneumonia Status: Acute (5) UTI (urinary tract infection) Status: Acute (6) Acute on chronic renal insufficiency Status: Acute (7) Knee pain, left Status: Acute (8) Sepsis Status: Acute <Ben Espinal - 05/23/18 08:19> Discharge Plan - Patient Discharge Instructions ACTIVITY: Continue current activity <Marcie Hawk - 05/19/18 14:54> DIET: continue same diet <Marcei Hawk - 05/19/18 14:54> Patient Instructions: <Ben Espinal - 05/23/18 08:19> Forms: <Ben Espinal - 05/23/18 08:19> - Follow up Plan Follow up with: Ben Espinal MD [Family Provider] - 1 week (at [facility]) <Ben Espinal - 05/23/18 08:19> Disposition: Xfer SNF <Ben Espinal - 05/23/18 08:19> Home Medications: Home Medications Medication Instructions Recorded Confirmed Type RX: Aspirin 81 mg PO DAILY 10/23/17 05/14/18 History RX: Carvedilol [Carvedilol 3.125mg 1.5625 mg PO DAILY 10/23/17 05/14/18 History Tab] RX: Clopidogrel Bisulfate [Plavix 75 mg PO DAILY 10/23/17 05/14/18 History 75mg Tab] RX: Mirtazapine [Remeron 15mg 15 mg PO HS 10/23/17 05/14/18 History tablet] RX: Multivitamin with Minerals 1 each PO DAILY 10/23/17 05/14/18 History [Multivitamins with Minerals] RX: Polyethylene Glycol 3350 17 gm PO DAILY 10/23/17 05/14/18 History [Miralax 17gm Packet] RX: Simvastatin [Zocor] 10 mg PO HS 10/23/17 05/14/18 History RX: raNITIdine HCl [Ranitidine HCl] 150 mg PO BID 10/23/17 05/14/18 History RX: Sennosides [Senna Laxative] 17.2 mg PO BIDP PRN 10/24/17 05/13/18 History RX: Ipratropium/Albuterol Sulfate 3 ml IH TID 05/07/18 05/14/18 History [Duoneb 3mL neb] RX: Donepezil HCl [Aricept 5mg] 5 mg PO HS 05/13/18 05/14/18 History RX: Lutein 10 mg PO DAILY 05/13/18 05/14/18 History RX: Carboxymethylcellulose Sodium 1 drop OP BID 05/14/18 05/14/18 History [Lubricating Plus] RX: Cholecalciferol (Vitamin D3) 2,000 unit PO DAILY 05/14/18 05/14/18 History [Vitamin D3] RX: Guaifenesin/Dextromethorphan 1 each PO BID 05/14/18 05/14/18 History [Mucinex Dm ER 600-30 mg Tablet] <Ben Espinal - 05/23/18 08:19> Prescriptions/Medication Reconciliation: New RX: Ipratropium/Albuterol Sulfate [Duoneb 3mL neb] 3 ml IH Q6RT ampul.neb RX: Morphine Sulfate [MS Contin 15mg EXTENDED RELEASE tablet] 15 mg PO BID tablet.er RX: Oxycodone HCl/Acetaminophen [Percocet 5/325mg tablet] 1 each PO Q4HP PRN tablet PRN Reason: Moderate To Severe Pain RX: Vancomycin HCl [Vancomycin 1000mg Vial] 750 mg IV Q24H #8 vial cefUROXime axetil [Ceftin 500mg Tab (GEQ)] 500 mg PO BID #14 tab Continue RX: Carvedilol [Carvedilol 3.125mg Tab] 1.5625 mg PO DAILY RX: Clopidogrel Bisulfate [Plavix 75mg Tab] 75 mg PO DAILY RX: Multivitamin with Minerals [Multivitamins with Minerals] 1 each PO DAILY RX: Polyethylene Glycol 3350 [Miralax 17gm Packet] 17 gm PO DAILY RX: Simvastatin [Zocor] 10 mg PO HS RX: Ipratropium/Albuterol Sulfate [Duoneb 3mL neb] 3 ml IH TID RX: Donepezil HCl [Aricept 5mg] 5 mg PO HS RX: Lutein 10 mg PO DAILY RX: Cholecalciferol (Vitamin D3) [Vitamin D3] 2,000 unit PO DAILY RX: Guaifenesin/Dextromethorphan [Mucinex Dm ER 600-30 mg Tablet] 1 each PO BID RX: Carboxymethylcellulose Sodium [Lubricating Plus] 1 drop OP BID RX: Aspirin 81 mg PO DAILY RX: Mirtazapine [Remeron 15mg tablet] 15 mg PO HS RX: raNITIdine HCl [Ranitidine HCl] 150 mg PO BID RX: Sennosides [Senna Laxative] 17.2 mg PO BIDP PRN PRN Reason: Constipation Discontinued RX: guaiFENesin [Robitussin 200mg/10mL Syrup Udc] 10 ml PO Q6HP PRN PRN Reason: Cough Sulfamethoxazole/Trimethoprim [Bactrim DS tablet] 1 each PO BID predniSONE [Prednisone 5mg Tab] 5 mg PO DAILY Hydrocod/Acet 5/325 mg [[place] 5/325mg tablet] 1 tab PO TID PRN #90 tab PRN Reason: pain <Ben Espinal - 05/23/18 08:19> - Additional Information Additional Information: Concur with above assessment and plan for discharge <Ben Espinal - 05/23/18 08:19>
--- NOTE | 2018-05-19 14:42 | Pharmacy Consult Notes ---
- Pharmacy Consult Date: 05/19/18 Time: 14:40 Referring provider: DR. MISHRA Reason for Consult:: VANCOMYCIN LEVEL Allergies and ADEs:: Allergies Allergy/AdvReac Type Severity Reaction Status Date / Time Penicillins Allergy Unknown Verified 05/13/18 20:40 streptomycin Allergy Unknown Verified 05/13/18 20:40 Home Medications:: Home Medications Medication Instructions Recorded Confirmed Type Aspirin 81 mg PO DAILY 10/23/17 05/14/18 History Carvedilol [Carvedilol 3.125mg Tab] 1.5625 mg PO DAILY 10/23/17 05/14/18 History Clopidogrel Bisulfate [Plavix 75mg 75 mg PO DAILY 10/23/17 05/14/18 History Tab] Mirtazapine [Remeron 15mg tablet] 15 mg PO HS 10/23/17 05/14/18 History Multivitamin with Minerals 1 each PO DAILY 10/23/17 05/14/18 History [Multivitamins with Minerals] Polyethylene Glycol 3350 [Miralax 17 gm PO DAILY 10/23/17 05/14/18 History 17gm Packet] Simvastatin [Zocor] 10 mg PO HS 10/23/17 05/14/18 History guaiFENesin [Robitussin 200mg/10mL 10 ml PO Q6HP PRN 10/23/17 05/13/18 History Syrup Udc] raNITIdine HCl [Ranitidine HCl] 150 mg PO BID 10/23/17 05/14/18 History Sennosides [Senna Laxative] 17.2 mg PO BIDP PRN 10/24/17 05/13/18 History Ipratropium/Albuterol Sulfate 3 ml IH TID 05/07/18 05/14/18 History [Duoneb 3mL neb] Donepezil HCl [Aricept 5mg] 5 mg PO HS 05/13/18 05/14/18 History Lutein 10 mg PO DAILY 05/13/18 05/14/18 History Sulfamethoxazole/Trimethoprim 1 each PO BID 05/13/18 05/14/18 History [Bactrim DS tablet] predniSONE [Prednisone 5mg 5 mg PO DAILY 05/13/18 05/14/18 History Tab] Carboxymethylcellulose Sodium 1 drop OP BID 05/14/18 05/14/18 History [Lubricating Plus] Cholecalciferol (Vitamin D3) 2,000 unit PO DAILY 05/14/18 05/14/18 History [Vitamin D3] Guaifenesin/Dextromethorphan 1 each PO BID 05/14/18 05/14/18 History [Mucinex Dm ER 600-30 mg Tablet] Height: 1.65 m Weight: 56.019 kg Laboratory Results:: Laboratory Results - last 24 hr 05/19/18 12:36: Sodium 144, Potassium 4.0, Chloride 112 H, Carbon Dioxide 24, Anion Gap 12.0, BUN 18, Creatinine 1.02 D, Estimated Creat Clear 34, Estimated GFR 51 L, Est GFR ( Amer) 62 D, Glucose 88, Calcium 8.2 L, Vancomycin Trough 18.2 Medical History: Reports:: Atherosclerotic Heart Disease, Chronic Obstructive Pulmonary Disease (COPD), Coronary Artery Disease, Urinary Tract Infection Denies:: Cancer, Diabetes Mellitus Type 1, Diabetes Mellitus Type 2, Internal Pacemaker, MRSA Assessment and Plan (1) Sacral fracture, closed Current visit: Yes Status: Acute Qualifiers: Qualified Code(s): S32.10XA - Unspecified fracture of sacrum, initial enc ounter for closed fracture Category: Medical Code(s): S32.10XA - Unspecified fracture of sacrum, initial encounter for closed fracture (2) Pelvic hematoma in female Current visit: Yes Status: Acute Category: Medical Code(s): N94.89 - Other specified conditions associated with female genital organs and menstrual cycle (3) Uncontrolled pain Current visit: Yes Status: Acute Category: Medical Code(s): R52 - Pain, unspecified (4) Bilateral pneumonia Current visit: No Status: Acute Category: Medical Code(s): J18.9 - Pneumonia, unspecified organism (5) UTI (urinary tract infection) Current visit: Yes Status: Acute Qualifiers: Qualified Code(s): N30.00 - Acute cystitis without hematuria Category: Medical Code(s): N39.0 - Urinary tract infection, site not specified (6) Acute on chronic renal insufficiency Current visit: Yes Status: Acute Category: Medical Code(s): N28.9 - Disorder of kidney and ureter, unspecified; N18.9 - Chronic kidney disease, unspecified (7) Knee pain, left Current visit: Yes Status: Acute Category: Medical Code(s): M25.562 - Pain in left knee (8) Sepsis Current visit: Yes Status: Acute Category: Medical Code(s): A41.9 - Sepsis, unspecified organism - Assessment and plan all Dx Assessment and Plan for all problems:: BASED ON PATIENT FACTORS AND VANCOMYCIN TROUGH LEVEL, RECOMMEND CONTINUING VANCOMYCIN 750 MG IV Q24H. PHARMACY WILL CONTINUE TO MONITOR DAILY AND ADJUST APPROPRIATE.
== END 2018-05-19 18:30 ==
LOC: ER 20:28 → 2ND 22:37
PROVIDERS: ADMIT Emergency Medicine; ATTEND Family Medicine